=== PATIENT | female | born 1970 | race Caucasian/White ===

== ENCOUNTER 2020-07-21 00:50 | Outpatient (CLI) | payer OTHER, SELFPAY ==
[2020-07-21 18:01] LABS: SARS-CoV-2 RNA PCR Negative
== END 2020-07-21 00:51 | disposition home or self-care (01) ==
LOC: ANHCOVIDDT 00:50
PROVIDERS: PCP Physician Assistant; Visit Provider Obstetrics & Gynecology
DX: Z01.812 Encounter for preprocedural laboratory examination (principal); Z20.828 Contact with and (suspected) exposure to other viral communicable diseases
CPT/HCPCS: 87635; C9803; U0003

== ENCOUNTER 2020-07-21 08:05 | Outpatient (CLI) | payer OTHER, SELFPAY ==
--- NOTE | 2020-07-21 08:10 | ECG_ITS ---
Measurements Intervals [place] Rate: 78 P: 55 NV: 119 QRS: 24 QRSD: 85 T: 8 QT: 354 QTc: 404 Interpretive Statements SINUS RHYTHM WITH SHORT NV INTERVAL NONSPECIFIC T-WAVE ABNORMALITY- ANT/INF LEADS BASELINE ARTIFACT- I, III, AVR, AVL, AVF BORDERLINE ECG Electronically Signed On 07-21-2020 8:21:21 CDT by Saud Lockett D.O.
== END 2020-07-21 08:06 | disposition home or self-care (01) ==
LOC: ANHSURGERY 08:10
PROVIDERS: PCP Physician Assistant; Visit Provider Obstetrics & Gynecology
DX: Z01.812 Encounter for preprocedural laboratory examination (principal); I10 Essential (primary) hypertension; R94.31 Abnormal electrocardiogram [ECG] [EKG]
CPT/HCPCS: 93005

== ENCOUNTER 2020-07-23 00:55 | Day surgery (SDC) | payer OTHER, SELFPAY ==
[2020-07-08 09:42] VITALS: BMI 29.8
--- NOTE | 2020-07-23 07:19 | PM.IMHP ---
H&P: HPI History of Present Illness Date/Time: 07/23/20 07:19 Chief complaint: menometrohaghia Narrative: Joan Kauffman is a 50 year old female Presents with complaints of 5-7 day menstrual cycles with 3-5 day heavy with clotting and cramping. We discussed multiple options and she desires to proceed with endometrial ablation. Underwent hysteroscopy within the last 2 years which revealed benign tissue. Also prior salpingectomy. Review of Systems Review of Systems: All systems reviewed & are unremarkable except as noted in HPI and below PMFSH Social History Social History Years smoked: 8 Smoking status: Former smoker Tobacco type: cigarettes Second hand tobacco smoke exposure: No Alcohol intake: current Drinks per week: 2 Substance use: never Last use: 04-23-2000 Living arrangements: with family Spiritual care concerns: No Meds Home Medications and Allergies Home Medications Medication Instructions Recorded Confirmed Type atorvastatin 20 mg PO DAILY 07/08/20 07/08/20 History esomeprazole magnesium [Nexium 20 mg PO DAILY 07/08/20 07/08/20 History 24HR] losartan 50 mg PO DAILY 07/08/20 07/08/20 History venlafaxine 32.5 mg PO DAILY 07/08/20 07/08/20 History Allergies Allergy/AdvReac Type Severity Reaction Status Date / Time No Known Allergies Allergy Verified 07/08/20 09:25 Exam Const: General: no acute distress Resp: Auscultation: clear to auscultation bilaterally Cardio: Rate: regular rate Rhythm: regular rhythm GI: GI Palp: Yes Soft to palpation : Other: Uterus 8-10 week size enlarged and globular. Assessment and Plan Assessment and plan (1) Menometrorrhagia: Code(s): N92.1 - Excessive and frequent menstruation with irregular cycle Status: Acute Additional Plan proceed with hysteroscopy uterine curettings as well as endometrial ablation.
--- NOTE | 2020-07-23 07:21 | WPDHPUPDATE1 ---
History and Physical Update Update Date/Time: 07/23/20 07:21 History and Physical has been reviewed, including an updated exam of the patient. There are NO changes in the patient's condition. Risks, benefits, and alternatives have been discussed and questions answered. Patient agrees to proceed with procedure.
[2020-07-23] MEDS: ACETAMINOPHEN 500 MG TABLET 1000 MG PO (11:14)
[2020-07-23 11:19] VITALS: BP 136/102; PULSE 105; RESP 20; TEMP 37.3; O2SAT 100
[2020-07-23] MEDS: LACTATED RINGERS 1,000 ML 30 ML IV CONT (11:21)
--- NOTE | 2020-07-23 12:17 | P.PNAN_ITS ---
Anes - Initial Pre Proc Eval Procedure: Operation Date: 07/23/20 13:00 Proposed Procedures p Hysteroscopy, Dilation and Curettage with Endometrial Ablation - Jacques Nunez MD Date/Time: 07/23/20 12:17 Surgeon: Jacques Nunez MD Pre Op Diagnosis: menometrohaghia Patient Data Age: 50 Gender: F Height: 5 ft 6 in Weight: 85 kg Last Vital Signs Temp 37.3 C 07/23/20 11:19 Pulse 105 H 07/23/20 11:19 Resp 20 07/23/20 11:19 BP 136/102 H 07/23/20 11:19 Pulse Ox 100 07/23/20 11:19 Allergies Allergy/AdvReac Type Severity Reaction Status Date / Time No Known Allergies Allergy Verified 07/23/20 11:31 Home Medications Medication Instructions Recorded Confirmed Type atorvastatin 20 mg PO DAILY 07/08/20 07/23/20 History esomeprazole magnesium [Nexium 20 mg PO DAILY 07/08/20 07/23/20 History 24HR] losartan 50 mg PO DAILY 07/08/20 07/23/20 History venlafaxine 32.5 mg PO DAILY 07/08/20 07/23/20 History Patient hx anesthesia problems: none Family hx anesthesia problems: none PMFSH Social History Social History Years smoked: 8 Smoking status: Former smoker Tobacco type: cigarettes Second hand tobacco smoke exposure: No Alcohol intake: current Drinks per week: 2 Substance use: never Last use: 04-23-2000 Living arrangements: with family Spiritual care concerns: No Anes - Eval Final PreProcedure Day of Procedure 07/23/20 12:17 Patient weight: obese Heart: regular rate and rhythm Lungs: clear to auscultation Airway: Mallampati scale class II Neurological: alert and oriented Last oral intake: >/= 8 hours ASA classification: III Anesthetic plan: proceed Anesthesia type and monitoring: general GIVS and standard monitoring Informed Consent: The patient's anesthetic plan and its attendant risks and b enefits were discussed with the patient/family/POA. Questions were solicited and answers provided to the satisfaction of the patient/family/POA.
--- NOTE | 2020-07-23 13:42 | SUR.OPER ---
Ebl=5ml
--- NOTE | 2020-07-23 13:44 | PM.OP ---
Procedure Note - Brief Procedure Note - Brief Date of procedure: 07/23/20 Pre-op diagnosis: menometrohaghia Post-op diagnosis: same Procedure performed: 1. Hysteroscopy 2. Dilation curettage 3. NovaSure endometrial ablation. Description of procedure: Patient prepped and draped in usual manner for this procedure. Cervix was dilated to allow the hysteroscope to be placed which revealed thickened tissue but no specific abnormalities. Curettings were obtained and sent for pathologic diagnosis. NovaSure instrument was placed after measurements were obtained and the instrument was activated. At the end of the procedure hysteroscopic exam revealed good destruction throughout and at this point procedure was considered terminated. Anesthesia: GLMA Surgeon: Jacques Nunez MD Estimated blood loss (mL): 5 Drains: No Packing: No Pathology: yes Complications: No immediate complications Disposition: PACU Findings: 1. Thickened endometrial cavity the no specific polyps and/or fibroids or other endometrial pathology was noted.
[2020-07-23 13:50] VITALS: BP 139/91; PULSE 112; RESP 16; O2SAT 94
== END 2020-07-23 14:54 | disposition home or self-care (01) ==
PROVIDERS: PCP Physician Assistant; Visit Provider Obstetrics & Gynecology
PROC: 0U5B8ZZ Destruction of Endometrium, Via Natural or Artificial Opening Endoscopic (ICD-10-PCS; CPT 58563; principal; 2020-07-23 13:00)
DX: N92.1 Excessive and frequent menstruation with irregular cycle (principal); Z90.79 Acquired absence of other genital organ(s); Z87.891 Personal history of nicotine dependence; E66.9 Obesity, unspecified; Z68.30 Body mass index [BMI] 30.0-30.9, adult
CPT/HCPCS: 58563; 88305; A9270; J1100; J2250; J2405; J2704; J3010; J7030; J7120

== ENCOUNTER 2022-02-18 15:33 | Outpatient (CLI) | payer OTHER, SELFPAY ==
--- NOTE | ~2022-02-18 | US_ITS ---
EXAMINATION: US pelvic complete w TV DATE: 02/18/2022 16:26 INDICATION: Pelvic and perineal pain TECHNIQUE: Multiple transabdominal and endovaginal sonographic images of the pelvis were obtained. COMPARISON: None. FINDINGS: The uterus measures 10.2 x 6.1 x 5.3 cm. The endometrial complex measures 6 mm. Isoechoic m ass of the uterine body measuring up to 1.6 cm the appearance of intramural fibroids. There are multi ple nabothian cysts of the cervix. A section scar is noted anteriorly in the lower uterine b luke. The left ovary is not visualized however no left adnexal abnormality is seen. The right ovary me asures 4.3 x 3.9 x 3.5 cm and contains a 3.7 cm cyst. There is normal vascular flow in the right ovar y. There is no free fluid in the pelvis. IMPRESSION: 1. No sonographic correlate for the patient's symptoms. 2. Right ovarian cyst. Follow-up ultrasound in one year is recommended. Reviewed, dictated and finalized at location F.
== END 2022-02-18 15:34 | disposition home or self-care (01) ==
PROVIDERS: PCP Physician Assistant; Visit Provider Obstetrics & Gynecology
DX: R10.2 Pelvic and perineal pain (principal); N60.01 Solitary cyst of right breast; N88.8 Other specified noninflammatory disorders of cervix uteri
CPT/HCPCS: 76830; 76856

== ENCOUNTER 2022-07-26 10:52 | Outpatient (CLI) | payer OTHER, SELFPAY ==
[2022-07-30 07:08] LABS: FSH 7.3 mIU/mL (***)
[2022-08-01 03:57] LABS: Estradiol, Ultrasensitive 315 pg/mL
== END 2022-07-26 10:53 | disposition home or self-care (01) ==
PROVIDERS: PCP Physician Assistant; Visit Provider Obstetrics & Gynecology
DX: N95.1 Menopausal and female climacteric states (principal)
CPT/HCPCS: 36415; 82670; 83001

== ENCOUNTER 2024-04-23 01:04 | Day surgery (SDC) | payer OTHER, SELFPAY ==
[2024-04-10 10:19] VITALS: BMI 29.9
[2024-04-23 08:30] VITALS: BP 164/108; PULSE 107; RESP 17; TEMP 36.3; O2SAT 95
[2024-04-23] MEDS: LACTATED RINGERS 1,000 ML 150 ML IV CONT (08:43)
--- NOTE | 2024-04-23 09:23 | PM.HPGS ---
History of Present Illness History of Present Illness Consent: Risks, benefits, and alternatives have been discussed and questions answered. Patient agrees to proceed with procedure. Chief complaint: Family Hx. Colon CA Narrative: Joan Kauffman is a 53 year old female with last colonoscopy 5 years ago, father had colon cancer Review of Systems Review of Systems: All systems reviewed & are unremarkable except as noted in HPI and below PMFSH Past Medical History Medical History (Updated 04/23/24 @ 09:24 by Demetris Patrick MD) Abnormal Pap smear of cervix 2000 ascus Anemia Anxiety and depression Arthritis Asthma Breast asymmetry Dizziness Family history of colon cancer in father High cholesterol Hypertension Mild acid reflux Perimenopause Screening mammogram, encounter for Surgical History Surgical History Delivery by section 12/25/03 primary c/s--breech @ 34 weeks H/O tubal ligation (08/10/18) History of colposcopy with cervical biopsy (~2000) benign History of dilation and curettage (08/10/18) History of endometrial ablation (07/23/20) menometrorrhagia Family History Family History Father Carcinoma of colon Mother Diabetes mellitus Arthritis Sibling Diabetes mellitus sister Grandparent Breast cancer paternal grandmother Tumor of ovary paternal grandmother Social History Social History (Updated 07/26/22 @ 10:09 by NARA Bower) Years smoked: 8 Smoking status: Former smoker Tobacco type: cigarettes Second hand tobacco smoke exposure: No Alcohol intake: current Drinks per week: 1 Alcohol use details: per month Substance use: never Substance use type: does not use Last use: 04-23-2000 Living arrangements: with family Additional living arrangements comments: Occupation/Education: occupation 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 Gender identity (if verbalized by the patient): Female Sexual Orientation (if Verbalized by the Patient): Straight or Heterosexual Spiritual care concerns: No Meds Home Medications and Allergies Home Medications Medication Instructions Recorded Confirmed Type esomeprazole magnesium 20 mg 20 mg PO DAILY 07/08/20 04/10/24 History capsule,delayed release (Nexium 24HR) losartan 50 mg tablet 50 mg PO DAILY 07/08/20 04/10/24 History venlafaxine 75 mg tablet 32.5 mg PO DAILY 07/08/20 04/10/24 History fluconazole 150 mg tablet 150 mg PO ONCE #5 tabs 07/26/22 04/10/24 Rx (Diflucan) atorvastatin 40 mg tablet 40 mg PO DAILY 04/10/24 04/10/24 History Allergies Allergy/AdvReac Type Severity Reaction Status Date / Time No Known Allergies Allergy Verified 04/23/24 08:29 Vital Signs Vital Signs - 24 hr 04/23/24 08:30 Temperature 97.4 F L Pulse Rate 107 H Respiratory Rate 17 Blood Pressure 164/108 H Pulse Oximetry 95 Oxygen Delivery Room Air Exam Const: General: comfortable and no acute distress HENMT: Face/Nose/Sinus: Normal nares present Eyes: General: appearance normal, both eyes and all related structures Neck: Neck: no JVD Resp: Auscultation: clear to auscultation bilaterally Cardio: Rate: regular rate Rhythm: regular rhythm GI: Inspection: non-distended GI Palp: Yes Soft to palpation Skin: General skin exam: normal color Neuro: General: gait normal Speech: normal speech Extrem: General: normal to inspection Psych: Mental Status: mental status grossly normal Assessment and Plan Assessment and plan (1) Family history of colon cancer in father: Code(s): Z80.0 - Family history of malignant neoplasm of digestive organs Status: Acute Assessment and Plan: colonoscopy
--- NOTE | 2024-04-23 09:37 | WPDANESEPPF ---
Anes - Initial Pre Proc Eval Procedure: Operation Date: 04/23/24 10:00 Proposed Procedures p Colonoscopy - Demetris Patrick MD Date/Time: 04/23/24 09:37 Surgeon: Demetris Patrick MD Pre Op Diagnosis: Family Hx. Colon CA Patient Data Age: 53 Gender: F Height: 1.68 m Weight: 82.5 kg Last Vital Signs Temp 97.4 F L 04/23/24 08:30 Pulse 107 H 04/23/24 08:30 Resp 17 04/23/24 08:30 BP 164/108 H 04/23/24 08:30 Pulse Ox 95 04/23/24 08:30 O2 Del Method Room Air 04/23/24 08:30 Allergies Allergy/AdvReac Type Severity Reaction Status Date / Time No Known Allergies Allergy Verified 04/23/24 08:29 Home Medications Medication Instructions Recorded Confirmed Type esomeprazole magnesium 20 mg 20 mg PO DAILY 07/08/20 04/10/24 History capsule,delayed release (Nexium 24HR) losartan 50 mg tablet 50 mg PO DAILY 07/08/20 04/10/24 History venlafaxine 75 mg tablet 32.5 mg PO DAILY 07/08/20 04/10/24 History fluconazole 150 mg tablet 150 mg PO ONCE #5 tabs 07/26/22 04/10/24 Rx (Diflucan) atorvastatin 40 mg tablet 40 mg PO DAILY 04/10/24 04/10/24 History Patient hx anesthesia problems: none Family hx anesthesia problems: none Results Review: All pre-operative results and documents have been reviewed as part of the pre-operative evaluation. [facility] Past Medical History Medical History (Updated 04/23/24 @ 09:24 by Demetris Patrick MD) Abnormal Pap smear of cervix 2000 ascus Anemia Anxiety and depression Arthritis Asthma Breast asymmetry Dizziness Family history of colon cancer in father High cholesterol Hypertension Mild acid reflux Perimenopause Screening mammogram, encounter for Surgical History Surgical History Delivery by section 12/25/03 primary c/s--breech @ 34 weeks H/O tubal ligation (08/10/18) History of colposcopy with cervical biopsy (~2000) benign History of dilation and curettage (08/10/18) History of endometrial ablation (07/23/20) menometrorrhagia Family History Family History Father Carcinoma of colon Mother Diabetes mellitus Arthritis Sibling Diabetes mellitus sister Grandparent Breast cancer paternal grandmother Tumor of ovary paternal grandmother Social History Social History (Updated 07/26/22 @ 10:09 by NARA Bower) Years smoked: 8 Smoking status: Former smoker Tobacco type: cigarettes Second hand tobacco smoke exposure: No Alcohol intake: current Drinks per week: 1 Alcohol use details: per month Substance use: never Substance use type: does not use Last use: 04-23-2000 Living arrangements: with family Additional living arrangements comments: Occupation/Education: occupation 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 Gender identity (if verbalized by the patient): Female Sexual Orientation (if Verbalized by the Patient): Straight or Heterosexual Spiritual care concerns: No Anes - Eval Final PreProcedure Day of Procedure 04/23/24 09:37 Patient weight: normal Heart: regular rate and rhythm Lungs: clear to auscultation Airway: Mallampati scale class II Neurological: alert and oriented Last oral intake: >/= 8 hours ASA classification: II Emergent: no Anesthetic plan: proceed Anesthesia type and monitoring: general GIVS and standard monitoring Results Review: All pre-operative results and documents have been reviewed as part of the pre-operative evaluation. Informed Consent: The patient's anesthetic plan and its attendant risks and benefits were discussed with the patient/family/POA. Questions were solicited and answers provided to the satisfaction of the patient/family/POA.
[2024-04-23 09:41] VITALS: BP 126/85; PULSE 102; RESP 20; O2SAT 99
[2024-04-23 09:51] VITALS: BP 137/88; PULSE 97; RESP 25; O2SAT 99
[2024-04-23 10:01] VITALS: BP 130/80; PULSE 74; RESP 13; O2SAT 100
== END 2024-04-23 10:04 | disposition home or self-care (01) ==
PROVIDERS: PCP Physician Assistant; Visit Provider Internal Medicine Gastroenterology
PROC: 0DJD8ZZ Inspection of Lower Intestinal Tract, Via Natural or Artificial Opening Endoscopic (ICD-10-PCS; CPT 45378; principal; 2024-04-23 10:00)
DX: Z12.11 Encounter for screening for malignant neoplasm of colon (principal); K64.8 Other hemorrhoids; Z80.0 Family history of malignant neoplasm of digestive organs; I10 Essential (primary) hypertension; E78.00 Pure hypercholesterolemia, unspecified; J45.909 Unspecified asthma, uncomplicated; F41.8 Other specified anxiety disorders; K21.9 Gastro-esophageal reflux disease without esophagitis; D64.9 Anemia, unspecified; Z87.891 Personal history of nicotine dependence
CPT/HCPCS: 45378; J2704; J7120

== ENCOUNTER 2024-12-03 09:36 | Outpatient (CLI) | payer OTHER, SELFPAY ==
--- NOTE | ~2024-12-03 | CT_ITS ---
EXAMINATION: CT abdomen pelvis w con DATE: 12/03/2024 10:22 INDICATION: Left lower quadrant abdominal pain TECHNIQUE: Computed tomography (CT) of the abdomen and pelvis was performed with 100 mL Omnipaque-350 intravenous contrast. Automated exposure control and iterative reconstruction technique were employe d. The dose-length product was 682.36 mGy-cm. COMPARISON: None FINDINGS: Calcified right lower lobe nodule and multiple small splenic calcifications consistent with old granu lomatous disease. Heart size normal. No pericardial or pleural effusion. Diffuse hepatic steatosis wi th more focal fat along the shamar hepatis. Gallbladder, pancreas, bilateral adrenal glands and kidney s are normal. No bowel obstruction. Normal appendix. There are some fluid in the proximal colon consi stent with nonspecific diarrhea but with stool more distally. Bladder, anteverted uterus and bilatera l adnexa are unremarkable. No free intraperitoneal gas or fluid. No pathologically enlarged abdominal or pelvic lymphadenopathy. Bones are unremarkable. IMPRESSION: 1. Fluid in the proximal colon consistent with nonspecific diarrhea. No other acute intra-abdominal/p elvic process. 2. Diffuse hepatic steatosis. Reviewed, dictated and finalized at location A. [employer] IMPRESSION: 1. Fluid in the proximal colon consistent with nonspecific diarrhea. No other a cute intra-abdominal/pelvic process. 2. Diffuse hepatic steatosis.
[2024-12-03 10:11] LABS: Estimated Glomerular Filt Rate > 60
== END 2024-12-03 09:37 | disposition home or self-care (01) ==
LOC: MICIMG 09:38
PROVIDERS: PCP Physician Assistant; Visit Provider Physician Assistant
DX: K63.89 Other specified diseases of intestine (principal); K76.0 Fatty (change of) liver, not elsewhere classified; R10.32 Left lower quadrant pain
CPT/HCPCS: 74177; Q9967

== ENCOUNTER 2025-01-14 01:00 | Day surgery (SDC) | payer OTHER, SELFPAY ==
[2025-01-03 12:22] VITALS: BMI 27.3
--- OUTSIDE RECORDS SUMMARY | 2025-01-14 01:03 | XMS_ITS | Continuity of Care Document ---
Author Organization [employer] [place] Address [address] [place] [address] Phone Care Team Providers Care Housekeeping Lead Name Role Phone Miquelmayuri FAITH Katharina Unavailable Unavailable Procedures Procedure Date Therapeutic Activities Neuromuscular Re-Ed Therapeutic Exercise Manual Therapy Hot or Cold Pack Therapeutic Activities Neuromuscular Re-Ed Therapeutic Exercise Manual Therapy Hot or Cold Pack Therapeutic Activities Neuromuscular Re-Ed Therapeutic Exercise Manual Therapy Hot or Cold Pack Therapeutic Activities Neuromuscular Re-Ed Therapeutic Exercise Manual Therapy Hot or Cold Pack Therapeutic Activities Neuromuscular Re-Ed Therapeutic Exercise Manual Therapy Hot or Cold Pack Therapeutic Activities Neuromuscular Re-Ed Therapeutic Exercise Manual Therapy Hot or Cold Pack Therapeutic Activities Neuromuscular Re-Ed Therapeutic Exercise Manual Therapy Hot or Cold Pack Therapeutic Activities Therapeutic Exercise Neuromuscular Re-Ed Hot or Cold Pack Manual Therapy Therapeutic Activities Neuromuscular Re-Ed Therapeutic Exercise Manual Therapy Hot or Cold Pack Therapeutic Activities Neuromuscular Re-Ed Therapeutic Exercise Manual Therapy Hot or Cold Pack Therapeutic Activities Neuromuscular Re-Ed Therapeutic Exercise Manual Therapy Hot or Cold Pack Therapeutic Activities Neuromuscular Re-Ed Manual Therapy Therapeutic Exercise Hot or Cold Pack Therapeutic Activities Neuromuscular Re-Ed Therapeutic Exercise Manual Therapy Hot or Cold Pack OT Evaluation Low Complexity Therapeutic Activities Neuromuscular Re-Ed Therapeutic Exercise Hot or Cold Pack Advance Directives Directive Yes / No Effective Date File Name No Information Encounters Encounter Description Practice Location Reason(s) For Visit Diagnoses Date Provider Providers Copied on Encounter [email or web address] [address], [place], [place], [id number], tel:[phone] [place] No Information b-0 3 Shana Posadas. . Referring Provider: Nancy Miller [address], [place], [address]. tel:[phone] [email or web address], [place], [place], [id number], tel:[phone] [place] No Information b-0 3 Ashley Fowler. . Referring Provider: Nancy Miller [address], [place], [address]. tel:[phone] [facility], [address], [place], [place], [id number], [place] tel:[phone] [place] No Information 3 Shana Posadas. . Referring Provider: aNncy Miller , [address], [place], [address]. tel:[phone] [facility], [address], [place], [place], [id number], [place] tel:[phone] [place] No Information 3 Shana Posadas. . Referring Provider: Nancy Miller , [address], [place], [address]. tel:[phone] [facility], [address], [place], [place], [id number], [place] tel:[phone] [place] No Information 3 Shana Posadas. . Referring Provider: Nancy Miller , [address], [place], [address]. tel:[phone] [facility], [place], [place], [address], [place] tel:[phone] [place] No Information 3 Shana Posadas. . Referring Provider: Nancy Miller [address], [place], [address]. tel:[phone] [facility], [place], [place], [address], [place] tel:[phone] [place] No Information 3 Shana Posadas. . Referring Provider: Nancy Miller [address], [place], [address]. tel:[phone] [facility], [place], [place], [id number], [place] tel:[phone] [place] No Information 3 Harig Katharina. . Referring Provider: Nancy Miller [address], [place], [address]. tel:[phone] [facility], [address], [place], [place], [id number], [place] tel:[phone] [place] No Information 2 Harig Katharina. . Referring Provider: Nancy Miller [address], [place], [address]. tel:[phone] [facility] [address], [place], [place], [id number], [place] tel:[phone] [place] No Information 2 Harig Katharina. . Referring Provider: Nancy Miller [address], [place], [address]. tel:[phone] [facility], [address], [place], [place], [address], [place] tel:[phone] Bl[place] No Information 2 Hasanoabebe Stapletonisa. . Referring Provider: Nancy Miller [address], [place], [address]. tel:[phone] [facility], [place], [place], [id number], [place] tel:[phone] Bl[place] No Information 2 James Voss. . Referring Provider: Nancy Miller [address], [place], [address]. tel:[phone] [facility], [address], [place], [place], [id number], [place] tel:[phone] Bl[place] No Information 2 Harig Katharina. . Referring Provider: Nancy Miller [address], [place], [address]. tel:[phone] [employer] [place], [address], [place], [place], [id number], tel:[phone] [place] No Information 2 Shana Posadas. . Referring Provider: Nancy Miller , [address], [place], [address]. tel:[phone] Family History Family Member Type Diagnosis Age At Onset No Information Payers Payer name Insurance type Covered democrat ID Benja garcia(s) Impinj CI [id number] Social History Type Description Quantity Date Captured Comments Sex Female Smoking Status No Information Chief Complaint And Reason For Visit No Information Reason For Referral Reason For Referral No Information History Of Present Illness Encounter Date Complaint History Of Prese nt Illness No Information Functional Status Date Functional Assessmen t No Information Instructions Date Instruction Additional Infor slick Dietary needs education Related to Overweight Prescribed activity/exercise edu cation Related to Overweight Assessments Type Assessment Date No Information Patient Care Teams Name Effective Dates (start - stop) Status Members No Information
--- OUTSIDE RECORDS SUMMARY | 2025-01-14 01:03 | XMS_ITS | Continuity of Care Document ---
Author Organization [facility] Address [address] [place] [address] Phone Care Team Providers Care Client Partner Name Role Phone Raciel Richardson MD Unavailable Unavailable Procedures Procedure Date Est. Patient Level 2 Ankle, Min Of 3 Views Est. Patient Level 2 Ankle, Min Of 3 Views New Patient Ov Level 2 Air Cast Advance Directives Directive Yes / No Effective Date File Name No Information Encounters Encounter Description Practice Location Reason(s) For Visit Diagnoses Date Provider Providers Copied on Encounter Est. Patient Level 2 [facility], [address] [place] [address], [id number], tel:[phone] [facility] No Information 3 Dylan Schrader. [address] [place] [address], [address], [place], [place], [id number] , [place]. [phone] Referring Provider: Raciel Muhammad, [address] [place] [address] [address], [place], [address] . tel:[phone] Est. Patient Level 2 [facility], [address] [place] [address], [place], [place], [id number], [place] tel:[phone] [facility] No Information 3 Dylan Schrader. [address] [place] [address], [address], [place], [place], [id number] , [place]. [phone] Referring Provider: Raciel Muhammad, [address], [place], [address] . tel:[phone] New Patient Ov Level 2 [facility] [place], [address], [place], [id number], [place] tel:[phone] [facility] No Information 3 Dylan Schrader. [address] [place] [address], [address], [place], [id number] , [place]. tel: [phone] Referring Provider: Loy Kauffman MD, [address], [place], [address]. tel:[phone] Family History Family Member Type Diagnosis Age At Onset No Information Payers Payer name Insurance type Covered republican ID Authoriza titerrance(s) [employer] PPO BL [id number] Social History Type Description Quantity Date Captured Comments Sex Female Smoking Status No Information Chief Complaint And Reason For Visit No Information Reason For Referral Reason For Referral No Information Plan Of Treatment Date Type Action Status Future Order: Lab Order [id number] LT-AP/LAT/OBL ([id number]), Appointment on: , Sent on: Sent Future Order: Lab Order [id number] LT-AP/LAT/OBL ([id number]), Appointment on: , Sent on: Sent History Of Present Illness Encounter Date Complaint History Of Prese nt Illness No Information Functional Status Date Functional Assessmen t No Information Instructions Date Instruction Additional Infor mation No Information Assessments Type Assessment Date No Information Patient Care Teams Name Effective Dates (start - stop) Status Members No Information
--- OUTSIDE RECORDS SUMMARY | 2025-01-14 01:03 | XMS_ITS | Data Portability ---
Author Organization [facility] [place], Main Office Address [address] [place] [address] Assessment No assessment recorded. Plan of Treatment Reminders Order Date Submit Date Provider Last Modified By Organization Details Last Modified Time Details Appointments None recorded. Lab HbA1c (hemoglobin A1c), blood 2022 023 [email or web address] [facility], [address], [place], [address], 4 10:10:48 TSH + free T4, serum 2022 023 [email or web address] [facility], [address], [place], [address], 4 10:11:06 CBC w/ auto diff 2022 023 [email or web address] 4 [facility], [address], [place], [address], 4 10:11:11 lipid panel, serum 2022 023 [email or web address] 4 [facility], [address], [place], [address], 4 10:10:53 CMP, serum or plasma 2022 023 [email or web address] 4 [employer] [facility], [address], [place], [address], 4 10:11:00 lh + FSH, serum 2022 023 [employer] [facility], [address], [place], [address], 3 03:15:17 estradiol, serum 2022 023 [employer] [facility], [address], [place], [address], 3 03:15:26 progesteron e, serum 2022 023 [employer] [facility], [address], [place], [address], 3 03:15:25 testosteron e, total, serum 2022 023 [employer] [facility], [address], [place], [address], 3 03:15:27 TSH, serum or plasma 2022 023 [employer] [facility], [address], [place], [address], 3 03:15:20 T4, free, serum 2022 023 [employer] [facility], [address], [place], [address], 3 03:15:21 CMP, serum or plasma 2022 023 [employer] [facility], [address], [place], [address], 3 03:15:19 CBC w/ auto diff 2022 023 [employer] [facility], [address], [place], [address], 3 03:15:22 urinalysis complete, reflex culture 2022 023 [employer] [facility], [address], [place], [address], 3 03:15:23 vitamin B12 + folate, serum or blood 2022 023 [facility], [address], [place], [address], 3 03:15:24 lipid panel, serum 2022 023 MAURI [employer] [facility], [address], [place], [address], 3 03:15:18 HbA1c (hemoglobin A1c), blood 2022 023 [facility], [address], [place], [address], 3 03:15:20 microalbumi n/creatinin e, mass ratio, urine 2022 023 OCALA [employer] [facility], [address], [place], [address], 3 03:15:16 Referral None recorded. Procedures upper endoscopy procedure (EGD) (PROC) 2022 023 james Estrada MD, [address], [address], [place], [address], 4 10:10:39 upper endoscopy procedure (EGD) (PROC) 2022 023 james Estrada MD, [address], [address], [place], [address], 3 10:25:16 Surgeries None recorded. Imaging CT, abdomen, w/ contrast - No auth needed per Janet Ref# [id number] 2022 023 MAURI Not available 3 14:09:51 exercise stress echocardiog margaret 2022 023 MAURI [facility], [address], [address], [place], [address], 3 13:46:42 Medication Orders pantoprazol e 40 mg tablet,indu yed release 2022 023 [id number], [address], [place], [place], [id number], 3 09:43:50 Mounjaro 2.5 mg/0.5 mL subcutaneou s pen injector 2022 023 [id number], [address], [place], [place], [id number], 3 09:43:49 Patient TargetsNo targets recorded. Patient InstructionsNo instructions recorded. Reason for Referral None Reported. Results Created Date Observation Date Name Description Value Unit Range Abnormal Flag Note LastModifiedBy Organization Detail LastModifiedTime 06/12/20 21 06/16/2021 IGP, APTIM A HPV HPV aptima negati ve negati ve This nucle ic acid ampli ficat ion test detec ts fourt een high- risk HPV types (16,1 8,31, 33,35 ,39,4 5,51, 52,56 ,58,5 9,66, 68) witho ut diffe renti ation . Not Available [facility] [address] [place], [address], 06/18/2021 10:11:54 06/12/20 21 06/18/2021 IGP, APTIM A HPV electronical ly signed by: gwen Britton MD, Patho logis t Not Available [facility] [address], [place], [address], 06/18/2021 10:11:54 06/12/20 21 06/18/2021 IGP, APTIM A HPV diagnosis: commen t NEGAT LUPE FOR INTRA EPITH ELIAL LESIO N OR MALIG SHAILESH . REACT LUPE CELLU LAR FORRESTER ES AND/O R REPAI R ARE PRESE NT. Not Available [facility] [address] [place], [address], 06/18/2021 10:11:54 06/12/20 21 06/18/2021 IGP, APTIM A HPV specimen adequacy: commen t Satis facto ry for evalu ation . Endoc ervic al and/o r squam ous metap lasti c cells (endo cervi aakash compo nent) are prese nt. Not Available [facility] [address] [place], [address], 06/18/2021 10:11:54 06/12/20 21 06/18/2021 IGP, APTIM A HPV clinician provided ICD10: gwen weeks Z01.4 19 Not Available [facility] [address] [place], [address], 06/18/2021 10:11:54 06/12/20 21 06/18/2021 IGP, APTIM A HPV performed by: gwen t Rai Mccall (ASCP ) Not Available [facility] [place], [address], 06/18/2021 10:11:54 06/12/20 21 06/18/2021 IGP, APTIM A HPV . . Not Available [facility] [address] [place], [address], 06/18/2021 10:11:54 06/12/20 21 06/18/2021 IGP, APTIM A HPV note: commen t The Pap smear is a scree katrin test desig luke to aid in the detec tion of taina ligna nt and malig nant condi tions of the uteri ne cervi x. It is not a diagn ostic proce dure and shoul d not be used as the sole means of detec ting cervi aakash cance r. Both false -posi tive and false -nega tive repor ts do occur . Not Available [facility] [address] [place], [address], 06/18/2021 10:11:54 06/12/20 21 06/18/2021 IGP, APTIM A HPV test methodology: commen t This liqui d based ThinP rep(R ) pap test was scree luke with the use of an image guide vaughn ramos. Not Available [facility] [address] [place], [address], 06/18/2021 10:11:54 06/12/20 21 06/15/2021 NUSWA B VAGIN ITIS (VG) atopobium vaginae low - 0 score normal Not Available [facility] ([facility]) [address] [place], [address], 06/16/2021 15:18:09 06/12/20 21 06/15/2021 NUSWA B VAGIN ITIS (VG) bvab 2 low - 0 score normal Not Available [facility] ([facility]) [address] [place], [address], 06/16/2021 15:18:09 06/12/20 21 06/15/2021 NUSWA B VAGIN ITIS (VG) megasphaera 1 low - 0 score normal Calcu late total score by addin g the 3 indiv idual bacte rial vagin osis (BV) marke r score s toget her. Total score is inter prete d as follo ws: Total score 0-1: Indic ates the absen ce of BV. Total score 2: Indet ermin ate for BV. Addit ional clini aakash data shoul d be evalu ated to estab elke a diagn osis. Total score 3-6: Indic ates the prese nce of BV. This test was devel oped and its perfo rmanc e polo cteri stics deter mined by [facility]. It has not been clear ed or appro eugene by the Food and Drug Admin istra tion. Not Available [facility] ([facility]) [address], [place], [address], 06/16/2021 15:18:09 06/12/20 21 06/15/2021 NUSWA B VAGIN ITIS (VG) chelo albicans, NIXON negati ve negati ve normal Not Available [facility] ([facility]) [address], [place], [address], 06/16/2021 15:18:09 06/12/20 21 06/15/2021 NUSWA B VAGIN ITIS (VG) chelo glabrata, NIXON negati ve negati ve normal Not Available [facility] ([facility]) [address], [place], [address], 06/16/2021 15:18:09 06/12/20 21 06/16/2021 NUSWA B VAGIN ITIS (VG) trich vag by NIXON negati ve negati ve normal Not Available [facility] ([facility]) [address], [place], [address], 06/16/2021 15:18:09 06/16/20 21 06/17/2021 HEMOG LOBIN A1C hemoglobin A1C 7.1 %_of_ total _HGB <5.7 high Not Available [facility] [address] [place], [place] [address], [address], 06/17/2021 08:07:18 06/16/20 21 06/17/2021 BASIC METAB OLIC PANEL BUN/creatini ne ratio not applic able (calc ) 6-22 Not Available [facility] [address] [facility] [place], [address], 06/17/2021 08:07:18 06/16/20 21 06/17/2021 BASIC METAB OLIC PANEL creatinine 0.69 mg/dL 0.50-1 .05 normal For patie nts >49 years of age, the refer ence limit for Creat inine is appro ximat cory 13% highe r for peopl e ident ified as Afric an-Am rajesh n. Not Available [address], [address], 06/17/2021 08:07:18 06/16/20 21 06/17/2021 BASIC METAB OLIC PANEL eGFR non-afr. brazilian 102 mL/mi n/1.7 3m2 > or = 60 normal Not Available [address], [address], 06/17/2021 08:07:18 06/16/20 21 06/17/2021 BASIC METAB OLIC PANEL eGFR 118 mL/mi n/1.7 3m2 > or = 60 normal Not Available [address], [address], 06/17/2021 08:07:18 06/16/20 21 06/17/2021 BASIC METAB OLIC PANEL sodium 137 mmol/ L 135-14 6 normal Not Available [address], [address], 06/17/2021 08:07:18 06/16/20 21 06/17/2021 BASIC METAB OLIC PANEL potassium 4.7 mmol/ L 3.5-5. 3 normal Not Available [address], [address], 06/17/2021 08:07:18 06/16/20 21 06/17/2021 BASIC METAB OLIC PANEL chloride 103 mmol/ L 98-110 normal Not Available [address], [address], 06/17/2021 08:07:18 06/16/20 21 06/17/2021 BASIC METAB OLIC PANEL carbon dioxide 26 mmol/ L 20-32 normal Not Available [address], [address], 06/17/2021 08:07:18 06/16/20 21 06/17/2021 BASIC METAB OLIC PANEL calcium 9.3 mg/dL 8.6-10 .4 normal Not Available [address], [address], 06/17/2021 08:07:18 06/16/20 21 06/17/2021 BASIC METAB OLIC PANEL glucose 144 mg/dL 65-99 high Fasti ng refer ence inter priyanka For someo ne witho ut known diabe srinath, a gluco se value >125 mg/dL indic ates that they may have diabe srinath and this shoul d be confi rmed with a follo w-up test. Not Available [address], [address], 06/17/2021 08:07:18 06/16/20 21 06/17/2021 BASIC METAB OLIC PANEL urea nitrogen (BUN) 12 mg/dL 7-25 normal Not Available [address], [address], 06/17/2021 08:07:18 06/16/20 21 06/17/2021 LIPID PANEL , STAND YODIT chol/HDLC ratio 3.5 (calc ) <5.0 normal Not Available [address], [address], 06/17/2021 08:07:17 06/16/20 21 06/17/2021 LIPID PANEL , STAND YODIT cholesterol, total 205 mg/dL <200 high Not Available [address], [address], 06/17/2021 08:07:17 06/16/20 21 06/17/2021 LIPID PANEL , STAND YODIT HDL cholesterol 59 mg/dL > or = 50 normal Not Available [address], [address], 06/17/2021 08:07:17 06/16/20 21 06/17/2021 LIPID PANEL , STAND YODIT triglyceride s 107 mg/dL <[address] [facility] [address] [place], [address], 06/17/2021 08:07:17 06/16/20 21 06/17/2021 LIPID PANEL , STAND YODIT LDL-choleste rol 125 mg/dL _(aakash c) high Refer ence range : <100 Delmis able range <100 mg/dL for prima ry preve ntion ; <70 mg/dL for patie nts with CHD or diabe tic patie nts with > or = 2 CHD risk facto rs. LDL-C is now calcu lated using the Renetta n-Hop kins calcu latio n, which is a valid ated novel dimaso vaughn bei john brigid r accur acy than the Fried helena equat ion in the estim ation of LDL-C . Renetta william SS et al. LARISSA. 2013; 310(1 9): 2061- 2068 (http ://ed ucati on.Qu Amigo da Cultura. com/f aq/FA Q164) Not Available [facility] [address] , [place], [address], 06/17/2021 08:07:17 06/16/20 21 06/17/2021 LIPID PANEL , STAND YODIT non HDL cholesterol 146 mg/dL _(aakash c) <130 high For patie nts with diabe srinath plus 1 major ASCVD risk facto r, treat ing to a non-H DL-C goal of <100 mg/dL (LDL- C of <70 mg/dL ) is consfelecia genaoo n. Not Available [facility] [address] [place], [address], 06/17/2021 08:07:17 04/06/20 23 04/10/2023 ALBUM IN, RANDO M URINE W/CRE ATINI NE creatinine, random urine 174 mg/dL 20-275 normal Not Available [facility] [address] [place], [address], 04/10/2023 03:15:16 04/06/2004/10/2023 ALBUM IN, RANDO M URINE W/CRE ATINI NE albumin, urine 0.7 mg/dL see note: normal Refer ence Range : Refer ence Range Not estab lishe d Not Available [address] [address] [place], [address], 04/10/2023 03:15:16 04/06/2004/10/2023 ALBUM IN, RANDO M URINE W/CRE ATINI NE albumin/crea tinine ratio, random urine 4 mcg/m g_cre at <30 normal The ADA defin es abnor malit ies in album in excre tion as follo ws: Album inuri a Categ ory Resul t (mcg/ mg creat inine ) Benita l to Mildl y incre ased <30 Moder ately incre ased 30-29 9 Sever cory incre ased > OR = 300 The ADA recom mends that at least two of three speci mens colle cted withi n a 3-6 month perio d be abnor mal befor e consi ryne g a patie nt to be withi n a diagn ostic categ ory. Not Available [address] [address] [place], [address], 04/10/2023 03:15:16 04/06/2004/10/2023 FSH AND LH FSH 31.5 mIU/m L normal Refer ence Range Folli cular Phase 2.5-1 0.2 Mid-c ycle Peak 3.1-1 7.7 Lutea l Phase 1.5- 9.1 Postm enopa usal 23.0- 116.3 Not Available [address] [address] [place], [address], 04/10/2023 03:15:17 04/06/2004/10/2023 FSH AND LH LH 27.2 mIU/m L normal Refer ence Range Folli cular Phase 1.9-1 2.5 Mid-C ycle Peak 8.7-7 6.3 Lutea l Phase 0.5-1 6.9 Postm enopa usal 10.0- 54.7 Not Available [address] [address] [place], [address], 04/10/2023 03:15:17 04/06/20 23 04/10/2023 LIPID PANEL WITH RATIO S cholesterol, total 199 mg/dL <200 normal Not Available [facility] [address] [address] [place], [address], 04/10/2023 03:15:18 04/06/20 23 04/10/2023 LIPID PANEL WITH RATIO S HDL cholesterol 62 mg/dL > or = 50 normal Not Available [address], [address], 04/10/2023 03:15:18 04/06/20 23 04/10/2023 LIPID PANEL WITH RATIO S triglyceride s 101 mg/dL <150 normal Not Available [address], [address], 04/10/2023 03:15:18 04/06/2004/10/2023 LIPID PANEL WITH RATIO S LDL-choleste rol 117 mg/dL _(aakash c) high Refer ence range : <100 Delmis able range <100 mg/dL for prima ry preve ntion ; <70 mg/dL for patie nts with CHD or diabe tic patie nts with > or = 2 CHD risk facto rs. LDL-C is now calcu lated using the Renetta n-Hop uday dickens n, which is a valid ated novel chato jones acy than the Fried helena equat ion in the estim ation of LDL-C . Renetta william SS et al. LARISSA. 2013; 310(1 9): 2061- 2068 (http ://ed ucati on.Qu estDi BackupAgentos tics. com/f aq/FA Q164) Not Available [facility] [address] [address] [place], [address], 04/10/2023 03:15:18 04/06/2004/10/2023 LIPID PANEL WITH RATIO S chol/HDLC ratio 3.2 (calc ) <5.0 normal Not Available [facility] [address] [address] [place], [address], 04/10/2023 03:15:18 04/06/2004/10/2023 LIPID PANEL WITH RATIO S LDL/HDL ratio 1.9 (calc ) Below avera ge Risk: <2.34 Wheeler ge Risk: 2.35- 4.12 Moder ate Risk: 4.13- 5.56 High Risk: >5.57 Not Available [facility] [address] [address] [place], [address], 04/10/2023 03:15:18 04/06/2004/10/2023 LIPID PANEL WITH RATIO S non HDL cholesterol 137 mg/dL _(aakash c) <130 high For patie nts with diabe srinath plus 1 major ASCVD risk facto r, treat ing to a non-H DL-C goal of <100 mg/dL (LDL- C of <70 mg/dL ) is consi jordid a thera peuti c optio n. Not Available [address] [address] [place], [address], 04/10/2023 03:15:18 04/06/2004/10/2023 COMPR EHENS LUPE METAB OLIC PANEL glucose 188 mg/dL 65-99 high Fasti ng refer ence inter priyanka For someo ne witho ut known diabe srinath, a gluco se value >125 mg/dL indic ates that they may have diabe srinath and this shoul d be confi rmed with a follo w-up test. Not Available [facility] [address] [address] [place], [address], 04/10/2023 03:15:19 04/06/20 23 04/10/2023 COMPR EHENS LUPE METAB OLIC PANEL urea nitrogen (BUN) 15 mg/dL 7-25 normal Not Available [address], [address], 04/10/2023 03:15:19 04/06/20 23 04/10/2023 COMPR EHENS LUPE METAB OLIC PANEL creatinine 0.74 mg/dL 0.50-1 .03 normal Not Available [address], [address], 04/10/2023 03:15:19 04/06/20 23 04/10/2023 COMPR EHENS LUPE METAB OLIC PANEL eGFR 98 mL/mi n/1.7 3m2 > or = 60 normal The eGFR is based on the CKD-E PI 2020 equat ion. To calcu late the new eGFR from a previ ous Creat inine or Cysta tin C resul t, go to https ://jennifer w.viki garcia.o seng/twyla sierra s/ kdoqi /gfr% 5Fcal culat or Not Available [address], [address], 04/10/2023 03:15:19 04/06/20 23 04/10/2023 COMPR EHENS LUPE METAB OLIC PANEL BUN/creatini ne ratio NOT APPLIC ABLE (calc ) 6-22 Not Available [address], [address], 04/10/2023 03:15:19 04/06/20 23 04/10/2023 COMPR EHENS LUPE METAB OLIC PANEL sodium 137 mmol/ L 135-14 6 normal Not Available [address], [address], 04/10/2023 03:15:19 04/06/20 23 04/10/2023 COMPR EHENS LUPE METAB OLIC PANEL potassium 4.6 mmol/ L 3.5-5. 3 normal Not Available [address] [address] [place], [address], 04/10/2023 03:15:19 04/06/2004/10/2023 COMPR EHENS LUPE METAB OLIC PANEL chloride 103 mmol/ L 98-110 normal Not Available [address] [place], [address], 04/10/2023 03:15:19 04/06/20 23 04/10/2023 COMPR EHENS LUPE METAB OLIC PANEL carbon dioxide 26 mmol/ L 20-32 normal Not Available [address], [address], 04/10/2023 03:15:19 04/06/2004/10/2023 COMPR EHENS LUPE METAB OLIC PANEL calcium 9.0 mg/dL 8.6-10 .4 normal Not Available [address], [address], 04/10/2023 03:15:19 04/06/2004/10/2023 COMPR EHENS LUPE METAB OLIC PANEL protein, total 6.8 g/dL 6.1-8. 1 normal Not Available [address], [address], 04/10/2023 03:15:19 04/06/2004/10/2023 COMPR EHENS LUPE METAB OLIC PANEL albumin 4.3 g/dL 3.6-5. 1 normal Not Available [facility] [address] [place], [address], 04/10/2023 03:15:19 04/06/2004/10/2023 COMPR EHENS LUPE METAB OLIC PANEL globulin 2.5 g/dL_ (calc ) 1.9-3. 7 normal Not Available [address], [address], 04/10/2023 03:15:19 04/06/2004/10/2023 COMPR EHENS LUPE METAB OLIC PANEL albumin/glob ulin ratio 1.7 (calc ) 1.0-2. 5 normal Not Available [address] [address] [place], [address], 04/10/2023 03:15:19 04/06/2004/10/2023 COMPR EHENS LUPE METAB OLIC PANEL bilirubin, total 0.5 mg/dL 0.2-1. 2 normal Not Available [address] [address] [place], [address], 04/10/2023 03:15:19 04/06/2004/10/2023 COMPR EHENS LUPE METAB OLIC PANEL alkaline phosphatase 90 U/L 37-153 normal Not Available [address] [address] [place], [address], 04/10/2023 03:15:19 04/06/2004/10/2023 COMPR EHENS LUPE METAB OLIC PANEL AST 17 U/L 10-35 normal Not Available [address], [address], 04/10/2023 03:15:19 04/06/2004/10/2023 COMPR EHENS LUPE METAB OLIC PANEL ALT 32 U/L 6-29 high Not Available [address], [address], 04/10/2023 03:15:19 04/06/2004/10/2023 HEMOG LOBIN A1C hemoglobin A1C 7.3 %_of_ total _HGB <5.7 high For someo ne witho ut known diabe srinath, a hemog lobin A1c value of 6.5% or great er indic ates that they may have diabe srinath and this shoul d be confi rmed with a follo w-up test. For someo ne with known diabe srinath, a value <7% indic ates that their diabe srinath is well contr olled and a value great er than or equal to 7% indic ates subop timal contr ol. A1c targe ts shoul d be indiv idual ized based on durat ion of diabe srinath, age, comor bid condi tions , and other consi derat ions. Curre ntly, no conse nsus exist s regar ding use of hemog lobin A1c for diagn osis of diabe srinath for child delfin. Not Available [address], [address], 04/10/2023 03:15:20 04/06/20 23 04/10/2023 TSH TSH 2.86 mIU/L normal Refer ence Range > or = 20 Years 0.40- 4.50 Pregn aubrey Range s First trime ster 0.26- 2.66 Secon d trime ster 0.55- 2.73 Third trime ster 0.43- 2.91 Not Available [address], [address], 04/10/2023 03:15:20 04/06/2004/10/2023 T4, FREE T4, free 1.0 NG/dL 0.8-1. 8 normal Not Available [facility] [address], [address], 04/10/2023 03:15:21 04/06/2004/10/2023 CBC (INCL UDES DIFF/ PLT) white blood cell count 6.7 thous and/u L 3.8-10 .8 normal Not Available [facility] [address], [address], 04/10/2023 03:15:22 04/06/2004/10/2023 CBC (INCL UDES DIFF/ PLT) red blood cell count 4.59 kaylene on/uL 3.80-5 .10 normal Not Available [facility] [address], [address], 04/10/2023 03:15:22 04/06/20 23 04/10/2023 CBC (INCL UDES DIFF/ PLT) hemoglobin 14.1 g/dL 11.7-1 5.5 normal Not Available [address], [address], 04/10/2023 03:15:22 04/06/20 23 04/10/2023 CBC (INCL UDES DIFF/ PLT) hematocrit 42.4 % 35.0-4 5.0 normal Not Available [address], [address], 04/10/2023 03:15:22 04/06/20 23 04/10/2023 CBC (INCL UDES DIFF/ PLT) MCV 92.4 fL 80.0-1 00.0 normal Not Available [address], [address], 04/10/2023 03:15:22 04/06/20 23 04/10/2023 CBC (INCL UDES DIFF/ PLT) MCH 30.7 pg 27.0-3 3.0 normal Not Available [address], [address], 04/10/2023 03:15:22 04/06/20 23 04/10/2023 CBC (INCL UDES DIFF/ PLT) MCHC 33.3 g/dL 32.0-3 6.0 normal Not Available [address], [address], 04/10/2023 03:15:22 04/06/20 23 04/10/2023 CBC (INCL UDES DIFF/ PLT) RDW 12.1 % 11.0-1 5.0 normal Not Available [address], [address], 04/10/2023 03:15:22 04/06/20 23 04/10/2023 CBC (INCL UDES DIFF/ PLT) platelet count 221 thous and/u L 140-40 0 normal Not Available [address] [place], [address], 04/10/2023 03:15:22 04/06/20 23 04/10/2023 CBC (INCL UDES DIFF/ PLT) MPV 12.1 fL 7.5-12 .5 normal Not Available [address], [address], 04/10/2023 03:15:22 04/06/20 23 04/10/2023 CBC (INCL UDES DIFF/ PLT) absolute neutrophils 3658 cells /uL 1500-7 800 normal Not Available [address], [address], 04/10/2023 03:15:22 04/06/20 23 04/10/2023 CBC (INCL UDES DIFF/ PLT) absolute lymphocytes 2399 cells /uL 850-39 00 normal Not Available [address], [address], 04/10/2023 03:15:22 04/06/20 23 04/10/2023 CBC (INCL UDES DIFF/ PLT) absolute monocytes 415 cells /uL 200-95 0 normal Not Available [address], [address], 04/10/2023 03:15:22 04/06/20 23 04/10/2023 CBC (INCL UDES DIFF/ PLT) absolute eosinophils 147 cells /uL 15-500 normal Not Available [address], [address], 04/10/2023 03:15:22 04/06/20 23 04/10/2023 CBC (INCL UDES DIFF/ PLT) absolute basophils 80 cells /uL 0-200 normal Not Available [address], [address], 04/10/2023 03:15:22 04/06/20 23 04/10/2023 CBC (INCL UDES DIFF/ PLT) neutrophils 54.6 % normal Not Available [address], [address], 04/10/2023 03:15:22 04/06/20 23 04/10/2023 CBC (INCL UDES DIFF/ PLT) lymphocytes 35.8 % normal Not Available [address], [address], 04/10/2023 03:15:22 04/06/20 23 04/10/2023 CBC (INCL UDES DIFF/ PLT) monocytes 6.2 % normal Not Available [address], [address], 04/10/2023 03:15:22 04/06/20 23 04/10/2023 CBC (INCL UDES DIFF/ PLT) eosinophils 2.2 % normal Not Available [address], [address], 04/10/2023 03:15:22 04/06/2004/10/2023 CBC (INCL UDES DIFF/ PLT) basophils 1.2 % normal Not Available [address], [address], 04/10/2023 03:15:22 04/06/20 23 04/10/2023 URINA LYSIS , COMPL ETE W/REF ANNETTE TO CULTU RE color YELLOW yellow normal Not Available [address], [address], 04/10/2023 03:15:23 04/06/20 23 04/10/2023 URINA LYSIS , COMPL ETE W/REF ANNETTE TO CULTU RE appearance CLEAR clear normal Not Available [address], [address], 04/10/2023 03:15:23 04/06/20 23 04/10/2023 URINA LYSIS , COMPL ETE W/REF ANNETTE TO CULTU RE specific gravity 1.023 1.001- 1.035 normal Not Available [address], [address], 04/10/2023 03:15:23 04/06/20 23 04/10/2023 URINA LYSIS , COMPL ETE W/REF ANNETTE TO CULTU RE pH 5.5 5.0-8. 0 normal Not Available [address], [address], 04/10/2023 03:15:23 04/06/20 23 04/10/2023 URINA LYSIS , COMPL ETE W/REF ANNETTE TO CULTU RE glucose NEGATI VE negati ve normal Not Available [address], [address], 04/10/2023 03:15:23 04/06/20 23 04/10/2023 URINA LYSIS , COMPL ETE W/REF ANNETTE TO CULTU RE bilirubin NEGATI VE negati ve normal Not Available [address], [address], 04/10/2023 03:15:23 04/06/20 23 04/10/2023 URINA LYSIS , COMPL ETE W/REF ANNETTE TO CULTU RE ketones TRACE negati ve abnormal Not Available [address], [address], 04/10/2023 03:15:23 04/06/20 23 04/10/2023 URINA LYSIS , COMPL ETE W/REF ANNETTE TO CULTU RE occult blood NEGATI VE negati ve normal Not Available [address], [address], 04/10/2023 03:15:23 04/06/20 23 04/10/2023 URINA LYSIS , COMPL ETE W/REF ANNETTE TO CULTU RE protein NEGATI VE negati ve normal Not Available [address] [place], [address], 04/10/2023 03:15:23 04/06/20 23 04/10/2023 URINA LYSIS , COMPL ETE W/REF ANNETTE TO CULTU RE nitrite NEGATI VE negati ve normal Not Available [address] [address] [place], [address], 04/10/2023 03:15:23 04/06/20 23 04/10/2023 URINA LYSIS , COMPL ETE W/REF ANNETTE TO CULTU RE leukocyte esterase NEGATI VE negati ve normal Not Available [address], [address], 04/10/2023 03:15:23 04/06/20 23 04/10/2023 URINA LYSIS , COMPL ETE W/REF ANNETTE TO CULTU RE WBC 0-5 /hpf < or = 5 normal Not Available [address], [address], 04/10/2023 03:15:23 04/06/20 23 04/10/2023 URINA LYSIS , COMPL ETE W/REF ANNETTE TO CULTU RE RBC NONE SEEN /hpf < or = 2 normal Not Available [address], [address], 04/10/2023 03:15:23 04/06/20 23 04/10/2023 URINA LYSIS , COMPL ETE W/REF ANNETTE TO CULTU RE squamous epithelial cells 0-5 /hpf < or = 5 Not Available [address] [address] [place], [address], 04/10/2023 03:15:23 04/06/20 23 04/10/2023 URINA LYSIS , COMPL ETE W/REF ANNETTE TO CULTU RE bacteria FEW /hpf none seen abnormal Not Available [address], [address], 04/10/2023 03:15:23 04/06/20 23 04/10/2023 URINA LYSIS , COMPL ETE W/REF ANNETTE TO CULTU RE hyaline cast NONE SEEN /lpf none seen normal Not Available [address], [address], 04/10/2023 03:15:23 04/06/20 23 04/10/2023 URINA LYSIS , COMPL ETE W/REF ANNETTE TO CULTU RE note This urine was adelaida zed for the prese nce of WBC, RBC, bacte jeremi, casts , and other forme d eleme nts. Only those eleme nts seen were repor richard. Not Available [address], [address], 04/10/2023 03:15:23 04/06/20 23 04/10/2023 REFLE XIVE URINE CULTU RE reflexive urine culture NO CULTU RE INDIC ATED Not Available [address], [address], 04/10/2023 03:15:24 04/06/20 23 04/10/2023 VITAM IN B12/F OLATE , SERUM PANEL vitamin B12 661 pg/mL 200-11 00 normal Not Available [address], [address], 04/10/2023 03:15:24 04/06/2004/10/2023 VITAM IN B12/F OLATE , SERUM PANEL folate, serum >24.0 NG/mL normal Refer ence Range Low: <3.4 Borde rline : 3.4-5 .4 Benita l: >5.4 Not Available [address], [address], 04/10/2023 03:15:24 04/06/20 23 04/10/2023 PROGE STERO NE progesterone 0.7 NG/mL normal Refer ence Range s Femal e Folli cular Phase < 1.0 Lutea l Phase 2.6-2 1.5 Post menop ausal < 0.5 Pregn aubrey 1st Trime ster 4.1-3 4.0 2nd Trime ster 24.0- 76.0 3rd Trime ster 52.0- 302.0 Not Available [employer] [facility] [address] [place], [address], 04/10/2023 03:15:25 04/06/2004/10/2023 ESTRA DIOL estradiol 108 pg/mL normal Refer ence Range Folli cular Phase : 19-14 4 Mid-C ycle: 64-35 7 Lutea l Phase : 56-21 4 Postm enopa usal: < or = 31 Refer ence range estab lishe d on post- puber josi patie nt popul ation . No pre-p ubert al refer ence range estab lishe d using this assay . For any patie nts for whom low Estra diol level s are antic ipate d (e.g. males , pre-p ubert al child delfin and hypog onada l/pos t-men opaus al femal es), the [facility] Estra diol, Ultra sensi tive, LCMSM S assay is heidy mendes (orde r code 58162 ). Plescot e note: patie nts being treat ed with the drug fulve stran t (Fasl odex( R)) have demon strat ed signi fican t inter feren ce in immun oassa y metho ds for estra diol measu remen t. The cross react ivity could lead to false ly eleva richard estra diol test resul ts leadi ng to an inapp ropri ate clini aakash asses sment of estro gen statu s. [facility] order code 12204 -Estr adiol , Ultra sensi tive LC/MS /MS demon strat es negli gible cross react ivity with fulve stran t. Not Available [employer] [facility] [address] [place], [address], 04/10/2023 03:15:26 04/06/2004/10/2023 TESTO STERO NE, TOTAL , MS testosterone , total, MS 31 NG/dL 2-45 For addit ional infor maria del carmen golden e refer to https ://ed ucati on.qu [employer]IA [employer]. com/f aq/To Vicky correa LCMSM S (This link is being provi ded for infor jerardo nal/e ducat ional purpo ses only. ) (Note ) This test was devel oped and its adelaida tical perfo rmanc e polo cteri stics have been deter mined by [employer]. It has not been clear ed or appro eugene by the FDA. This assay has been valid ated pursu ant to the CLIA regul ation s and is used for clini aakash purpo ses. F santosh william [address] [facility] [address] [place] [address] [phone] Brett cleveland MD Not Available [employer] [address], [address], 04/10/2023 03:15:27 01/27/20 24 01/28/2024 TSH+F REE T4 TSH 2.56 mIU/L normal Refer ence Range > or = 20 Years 0.40- 4.50 Pregn aubrey Range s First trime ster 0.26- 2.66 Secon d trime ster 0.55- 2.73 Third trime ster 0.43- 2.91 Not Available [employer] [address], [address], 01/28/2024 04:18:27 01/27/20 24 01/28/2024 TSH+F REE T4 T4, free 1.1 NG/dL 0.8-1. 8 normal Not Available [employer] [address], [address], 01/28/2024 04:18:27 01/27/20 24 01/28/2024 LIPID PANEL WITH RATIO S cholesterol, total 229 mg/dL <200 high Not Available [employer] [facility] [address] [place] [address], [address], 01/28/2024 04:18:28 01/27/20 24 01/28/2024 LIPID PANEL WITH RATIO S HDL cholesterol 62 mg/dL > or = [address] [facility] [address] [place], [address], 01/28/2024 04:18:28 01/27/20 24 01/28/2024 LIPID PANEL WITH RATIO S triglyceride s 115 mg/dL <150 normal Not Available [address], [place], [address], 01/28/2024 04:18:28 01/27/20 24 01/28/2024 LIPID PANEL WITH RATIO S LDL-choleste rol 144 mg/dL _(aakash c) high Refer ence range : <100 Delmis able range <100 mg/dL for prima ry preve ntion ; <70 mg/dL for patie nts with CHD or diabe tic patie nts with > or = 2 CHD risk facto rs. LDL-C is now calcu lated using the Renetta n-Hop kins calcu maninder n, which is a valid ated novel chato reyes than the Fried helena equat ion in the estim ation of LDL-C . Renetta william SS et al. LARISSA. 2013; 310(1 9): 2061- 2068 (http ://ed ucati on.Qu Kelsey rider [employer]. com/f aq/FA Q164) Not Available [facility] [address] [place] [address], [place], [address], 01/28/2024 04:18:28 01/27/20 24 01/28/2024 LIPID PANEL WITH RATIO S chol/HDLC ratio 3.7 (calc ) <5.[address] [facility] [address] [place] [address], [address], 01/28/2024 04:18:28 01/27/20 24 01/28/2024 LIPID PANEL WITH RATIO S LDL/HDL ratio 2.3 (calc ) Below avera ge Risk: <2.34 Wheeler ge Risk: 2.35- 4.12 Moder ate Risk: 4.13- 5.56 High Risk: >5.57 Not Available [address], [address], 01/28/2024 04:18:28 01/27/20 24 01/28/2024 LIPID PANEL WITH RATIO S non HDL cholesterol 167 mg/dL _(aakash c) <130 high For patie nts with diabe srinath plus 1 major ASCVD risk facto r, treat ing to a non-H DL-C goal of <100 mg/dL (LDL- C of <70 mg/dL ) is nedai saba quan optio n. Not Available [employer] [address], [address], 01/28/2024 04:18:28 01/27/2001/28/2024 COMPR EHENS LUPE METAB OLIC PANEL glucose 252 mg/dL 65-99 high Fasti ng refer ence inter priyanka For someo ne witho ut known diabe srinath, a gluco se value >125 mg/dL indic ates that they may have diabe srinath and this shoul d be confi rmed with a follo w-up test. Not Available [address], [address], 01/28/2024 04:18:29 01/27/2001/28/2024 COMPR EHENS LUPE METAB OLIC PANEL urea nitrogen (BUN) 13 mg/dL 7-25 normal Not Available [facility] [employer] [facility] [address] [place], [address], 01/28/2024 04:18:29 01/27/20 24 01/28/2024 COMPR EHENS LUPE METAB OLIC PANEL creatinine 0.71 mg/dL 0.50-1 .03 normal Not Available [employer] [address], [address], 01/28/2024 04:18:29 01/27/20 24 01/28/2024 COMPR EHENS LUPE METAB OLIC PANEL eGFR 102 mL/mi n/1.7 3m2 > or = 60 normal Not Available [address], [address], 01/28/2024 04:18:29 01/27/20 24 01/28/2024 COMPR EHENS LUPE METAB OLIC PANEL BUN/creatini ne ratio SEE NOTE: (calc ) 6-22 Not Repor richard: BUN and Creat inine are withi n refer ence range . Not Available [address], [address], 01/28/2024 04:18:29 01/27/20 24 01/28/2024 COMPR EHENS LUPE METAB OLIC PANEL sodium 135 mmol/ L 135-14 6 normal Not Available [address], [address], 01/28/2024 04:18:29 01/27/20 24 01/28/2024 COMPR EHENS LUPE METAB OLIC PANEL potassium 4.3 mmol/ L 3.5-5. 3 normal Not Available [address], [address], 01/28/2024 04:18:29 01/27/20 24 01/28/2024 COMPR EHENS LUPE METAB OLIC PANEL chloride 102 mmol/ L 98-110 normal Not Available [address], [address], 01/28/2024 04:18:29 01/27/20 24 01/28/2024 COMPR EHENS LUPE METAB OLIC PANEL carbon dioxide 23 mmol/ L 20-32 normal Not Available [address], [address], 01/28/2024 04:18:29 01/27/20 24 01/28/2024 COMPR EHENS LUPE METAB OLIC PANEL calcium 9.1 mg/dL 8.6-10 .4 normal Not Available [address], [address], 01/28/2024 04:18:29 01/27/20 24 01/28/2024 COMPR EHENS LUPE METAB OLIC PANEL protein, total 6.7 g/dL 6.1-8. 1 normal Not Available [address], [address], 01/28/2024 04:18:29 01/27/20 24 01/28/2024 COMPR EHENS LUPE METAB OLIC PANEL albumin 4.2 g/dL 3.6-5. 1 normal Not Available [address], [address], 01/28/2024 04:18:29 01/27/20 24 01/28/2024 COMPR EHENS LUPE METAB OLIC PANEL globulin 2.5 g/dL_ (calc ) 1.9-3. 7 normal Not Available [address], [address], 01/28/2024 04:18:29 01/27/20 24 01/28/2024 COMPR EHENS LUPE METAB OLIC PANEL albumin/glob ulin ratio 1.7 (calc ) 1.0-2. 5 normal Not Available [address], [address], 01/28/2024 04:18:29 01/27/20 24 01/28/2024 COMPR EHENS LUPE METAB OLIC PANEL bilirubin, total 0.7 mg/dL 0.2-1. 2 normal Not Available [address], [address], 01/28/2024 04:18:29 01/27/20 24 01/28/2024 COMPR EHENS LUPE METAB OLIC PANEL alkaline phosphatase 90 U/L 37-153 normal Not Available [facility] [employer] [address] [place], [address], 01/28/2024 04:18:29 01/27/20 24 01/28/2024 COMPR EHENS LUPE METAB OLIC PANEL AST 14 U/L 10-35 normal Not Available [facility] [address], [place], [address], 01/28/2024 04:18:29 01/27/20 24 01/28/2024 COMPR EHENS LUPE METAB OLIC PANEL ALT 29 U/L 6-29 normal Not Available [facility] [address], [place], [address], 01/28/2024 04:18:29 01/27/20 24 01/28/2024 HEMOG LOBIN A1C hemoglobin A1C 9.3 %_of_ total _HGB <5.7 high For someo ne witho ut known diabe srinath, a hemog lobin A1c value of 6.5% or great er indic ates that they may have diabe srinath and this shoul d be confi rmed with a follo w-up test. For someo ne with known diabe srinath, a value <7% indic ates that their diabe srinath is well contr olled and a value great er than or equal to 7% indic ates subop timal contr ol. A1c targe ts shoul d be indiv idual ized based on durat ion of diabe srinath, age, comor bid condi tions , and other consi derat ions. Curre ntly, no conse nsus exist s regar ding use of hemog lobin A1c for diagn osis of diabe srinath for child delfin. This test was perfo rmed on the [employer] [facility] platf orm. Effec tive , a mohan evangelista in test platf orms from the [employer] t[employer] to the [employer] may have shift ed HbA1c resul ts leatha red to histo rical resul ts. Based on labor atory valid ation testi ng condu cted at [facility] [employer] , the You platf orm relat lupe to the [employer] platf orm had an avera ge incre ase in HbA1c value of < or = 0.3%. This diffe rence is withi n accep richard varia bilit y estab lishe d by the [facility] hemog lobin Stand ann-marie muller Progr am. Note that not all indiv idual s will have had a shift in their resul ts and direc t leatha rison s betwe en histo rical and curre nt resul ts for testi ng condu cted on diffe rent platf orms is not recom kulwinder d. Not Available [address] [address] [place], [address], 01/28/2024 04:18:30 01/27/2001/28/2024 CBC (INCL UDES DIFF/ PLT) white blood cell count 6.7 thous and/u L 3.8-10 .8 normal Not Available [address] [address] [place], [address], 01/28/2024 04:18:31 01/27/20 24 01/28/2024 CBC (INCL UDES DIFF/ PLT) red blood cell count 4.74 kayelne on/uL 3.80-5 .10 normal Not Available [address] [address] [place], [address], 01/28/2024 04:18:31 01/27/20 24 01/28/2024 CBC (INCL UDES DIFF/ PLT) hemoglobin 14.6 g/dL 11.7-1 5.5 normal Not Available [facility] [address] [place], [address], 01/28/2024 04:18:31 01/27/20 24 01/28/2024 CBC (INCL UDES DIFF/ PLT) hematocrit 44.5 % 35.0-4 5.0 normal Not Available [facility] [address] [address] [place], [address], 01/28/2024 04:18:31 01/27/20 24 01/28/2024 CBC (INCL UDES DIFF/ PLT) MCV 93.9 fL 80.0-1 00.0 normal Not Available [address], [address], 01/28/2024 04:18:31 01/27/20 24 01/28/2024 CBC (INCL UDES DIFF/ PLT) MCH 30.8 pg 27.0-3 3.0 normal Not Available [address], [address], 01/28/2024 04:18:31 01/27/20 24 01/28/2024 CBC (INCL UDES DIFF/ PLT) MCHC 32.8 g/dL 32.0-3 6.0 normal Not Available [address], [address], 01/28/2024 04:18:31 01/27/20 24 01/28/2024 CBC (INCL UDES DIFF/ PLT) RDW 12.1 % 11.0-1 5.0 normal Not Available [address], [address], 01/28/2024 04:18:31 01/27/20 24 01/28/2024 CBC (INCL UDES DIFF/ PLT) platelet count 210 thous and/u L 140-40 0 normal Not Available [address], [address], 01/28/2024 04:18:31 01/27/20 24 01/28/2024 CBC (INCL UDES DIFF/ PLT) MPV 11.9 fL 7.5-12 .5 normal Not Available [address], [address], 01/28/2024 04:18:31 01/27/20 24 01/28/2024 CBC (INCL UDES DIFF/ PLT) absolute neutrophils 3310 cells /uL 1500-7 800 normal Not Available [address], [address], 01/28/2024 04:18:31 01/27/20 24 01/28/2024 CBC (INCL UDES DIFF/ PLT) absolute lymphocytes 2801 cells /uL 850-39 00 normal Not Available [address], [address], 01/28/2024 04:18:31 01/27/20 24 01/28/2024 CBC (INCL UDES DIFF/ PLT) absolute monocytes 415 cells /uL 200-95 0 normal Not Available [facility] [address], [address], 01/28/2024 04:18:31 01/27/20 24 01/28/2024 CBC (INCL UDES DIFF/ PLT) absolute eosinophils 127 cells /uL 15-500 normal Not Available [facility] [address], [address], 01/28/2024 04:18:31 01/27/20 24 01/28/2024 CBC (INCL UDES DIFF/ PLT) absolute basophils 47 cells /uL 0-200 normal Not Available [employer] [address], [address], 01/28/2024 04:18:31 01/27/20 24 01/28/2024 CBC (INCL UDES DIFF/ PLT) neutrophils 49.4 % normal Not Available [address], [address], 01/28/2024 04:18:31 01/27/20 24 01/28/2024 CBC (INCL UDES DIFF/ PLT) lymphocytes 41.8 % normal Not Available [address], [address], 01/28/2024 04:18:31 01/27/20 24 01/28/2024 CBC (INCL UDES DIFF/ PLT) monocytes 6.2 % normal Not Available [facility] [address], [address], 01/28/2024 04:18:31 01/27/20 24 01/28/2024 CBC (INCL UDES DIFF/ PLT) eosinophils 1.9 % normal Not Available [address] [address] [place], [address], 01/28/2024 04:18:31 01/27/20 24 01/28/2024 CBC (INCL UDES DIFF/ PLT) basophils 0.7 % normal Not Available [address] [address] [place], [address], 01/28/2024 04:18:31 06/29/20 21 06/26/2021 MAMMO , scree katrin, digit al, bilat eral No observ ation record ed. [id number] [facility] [address] [place], [address], 12/22/2022 03:07:30 06/29/20 21 MAMMO , scree katrin, digit al, bilat eral [facility] [address] [place] [address] [phone] Patien t Name: JOAN LANDERS [facility] ion #: [id number] Sex: F : 1969 8 Locati on: RA2 Attend ing Physic akshat: NAIMA RENDON Orderi ng Physic akshat: NAIMA RENDON Exam Date: 06/26/20 21 8:16 AM Exam Name: MG DIGITA L CAITY BILAT SCREEN Admitt ing Diagno sis(es ): RADIOL OGY REPORT - FINAL EXAM: MG DIGITA L CAITY BILAT SCREEN HISTOR Y: Screen ing mammog margaret 51-yea r-old female with no curren t breast compla ints. COMPAR PANCHO: Mammog kathleen dated 2019, 2019, 2012. TECHNI QUE: Bilate ral CC and MLO views of the breast s were perfor med. Digita l Mammog kathleen images were obtain ed. CAD (compu ter assist ed detect ion) was utiliz ed. FINDIN GS: The breast s are hetero geneou sly dense, which may obscur e small masses . No new masses , develo ping asymme tries, suspic ious calcif icatio ns, or gordo ectura l distor tion are seen. Page 1 of 2 [facility] Hubert weeks Name: JOAN LANDERS Access ion #: [id number] Sex: F : 1969 8 Exam Date: 06/26/20 8:16 AM Exam Name: MG GANESH L CAITY BILAT SCREEN Admitt ing Diagno sis(es ): IMPRES JOEL: BIRADS 1: Assess ment comple te. Negati ve. Recomm end annual screen ing mammog kathleen. Accord ing to the [employer], yearly mammog marita are recomm ended starti ng at age 40 and contin uing as long as the woman is in good health . Clinic al Breast Exam should be part of the period ic health exam-a bout every 3 years for women in their 20s and 30s and every year for women 40 and over. Breast self-e xam is an option for women in their 20s. Any breast change noted on the breast self-e xam she would be report ed prompt ly to the [facility]. A negati ve mammog kathleen report should not discou rage follow -up or biopsy of a clinic ally signif icant findin g and/or abnorm ality. Dense breast tissue may obscur e small neopla sms. This hubert weeks has been entere d into a mammog kathleen remind er system with a target date for her next mammog margaret. Create d and electr onical ly signed by: Shin evangelista MD Signed Date: 06/29/20 10:00 PM (CT) Dictat ed by: Shin evangelista MD (CT) (CT) Page 2 of 2 [id number] [facility] (Imaging) [address] [place], [address], 12/22/2022 03:07:30 06/30/20 21 06/26/2021 MAMMO , scree katrin, digit al, bilat eral No observ ation record ed. MIGRATION. [facility] [address] [place], [address], 12/22/2022 03:07:30 10/01/20 21 10/01/2021 XR, cervi aakash spine No observ ation record ed. MIGRATION. [address] , [place], [address], 12/22/2022 03:07:30 10/01/20 21 10/01/2021 XR, cantu oclav icula r joint (s) No observ ation record ed. MIGRATION. [address] , [place], [address], 12/22/2022 03:07:30 10/08/20 21 10/08/2021 US, abdom en, compl ete No observ ation record ed. MIGRATION. [facility] [address] [place], [address], 12/22/2022 03:07:30 10/14/20 21 10/01/2021 XR, cantu oclav icula r joint (s) No observ ation record ed. MIGRATION. [facility] [address] [place], [address], 12/22/2022 03:07:30 03/17/20 22 02/18/2022 US, pelvi s, compl ete No observ ation record ed. MIGRATION. [place] [address], [place], [address], 12/22/2022 03:07:30 08/30/20 22 08/24/2022 MAMMO , diagn ostic , digit al, unila teral No observ ation record ed. [id number] [facility] [address] [place], [address], 12/22/2022 03:07:30 09/22/20 22 08/10/2022 MAMMO , scree katrin, digit al, bilat eral No observ ation record ed. [id number] [facility] [address], [place], [address], 12/22/2022 03:07:30 11/01/19 23 09/23/2022 XR, elbow No observ ation record ed. [id number] [facility] [place] [address], [place], [address], 12/22/2022 03:07:30 04/11/20 23 04/11/2023 CT, abdom en, w/ contr ast No observ ation record ed. [email or web address] [facility] [address], [place], [address], 05/11/2023 09:22:45 05/31/20 23 05/31/2023 exerc ise stres s echoc ardio gram No observ ation record ed. [email or web address] [facility] [address], [place], [address], 06/01/2023 10:35:05 Result Notes None recorded. Problems Name Problem SNOMED Code Status Onset Date Resolution Date Notes Provider Name and Address Organization Details Recorded Time Benign essential hypertension 6559263 Active 2018 Not Available [employer] 3 02:58:30 Enlarged uterus 295954827 Active Not Available [employer] 3 02:58:30 Generalized anxiety disorder 21466375 Active 2018 Not Available [employer] 3 02:58:31 Hyperlipidemi a 69191285 Active 2018 Not Available [employer] 3 02:58:31 Left upper quadrant pain 057728319 Active 2022 DESTINI Smith [address], [place], [address] , [employer] 3 10:32:13 Acid reflux 860586466 Active 2022 DESTINI Smith [address], [place], [address] , [employer] 3 10:32:37 Type 2 diabetes mellitus without complication 985287603 Active 2022 DESTINI Smith [address], [place], [address] , [employer] 3 10:32:59 Atypical chest pain 141587015 Active 2022 DESTINI Smith [address], [place], [address] , [employer] 3 10:33:37 Uncontrolled type 2 diabetes mellitus 461452606 Active 2022 DESTINI Smith [address], [place], [address] , [employer] 3 09:23:20 Epigastric pain 71824586 Active 2022 DESTINI Smith [address], [place], [address] , [employer] 3 09:42:06 Cardiovascula r stress test abnormal 316582502 Active 2022 DESTINI Smith [address], [place], [address] , [employer] 3 09:46:50 Problem Notes None recorded. Procedures Surgical History Date Name Laterality Status Provider Name and Address Organization Details Recorded Time 06/26/20 21 Most Recent Mammogram completed Not Available [facility] 12/22/2022 02:51:27 06/12/20 21 Date of Last Pap Smear completed Not Available [facility] 12/22/2022 02:51:27 12/23/19 19 Date of Last Colonoscopy completed Not Available [facility] 12/22/2022 02:51:27 12/25/19 04 section completed Not Available [facility] 12/22/2022 02:51:32 Tubal Ligation completed [facility] 12/22/2022 02:51:32 Imaging Results Imaging Date Name Status LastModified by Organization Details LastModified Time 02/18/2022 US, pelvis, complete completed [id number] [facility] [address], [place], [address], 12/22/2022 03:07:30 09/23/2022 XR, elbow completed [id number] [facility] [address], [place], [address], 12/22/2022 03:07:30 06/26/2021 MAMMO, screening, digital, bilateral completed [id number] [facility] [address] [place], [address], 12/22/2022 03:07:30 06/29/2021 MAMMO, screening, digital, bilateral completed [id number] [facility] [address] [place], [address], 12/22/2022 03:07:30 06/26/2021 MAMMO, screening, digital, bilateral completed [id number] [facility] [address] [place], [address], 12/22/2022 03:07:30 10/01/2021 XR, sternoclavicular joint(s) completed [id number] [facility] [address] [place], [place], [address], 12/22/2022 03:07:30 10/01/2021 XR, cervical spine completed MIGRATION .[id number] , [place], [address], 12/22/2022 03:07:30 10/01/2021 XR, sternoclavicular joint(s) completed MIGRATION.[id number] , [place], [address], 12/22/2022 03:07:30 10/08/2021 US, abdomen, complete completed MIGRATION.[id number] [facility] [address] [place], [address], 12/22/2022 03:07:30 08/24/2022 MAMMO, diagnostic, digital, unilateral completed MIGRATION.[id number] [facility] [address] [place], [address], 12/22/2022 03:07:30 08/10/2022 MAMMO, screening, digital, bilateral completed MIGRATION.[id number] [facility] [address] [place], [address], 12/22/2022 03:07:30 04/11/2023 CT, abdomen, w/ contrast completed [email or web address] [address] , [place], [address], 05/11/2023 09:22:45 05/31/2023 exercise stress echocardiogram completed [email or web address] [facility] [address], [place], [address], 06/01/2023 10:35:05 Procedure Notes None recorded. Medical Equipment None Reported. Allergies No known drug allergies Medications Name Sig Start Date Stop Date Status Note LastModified by Organization Details LastModified Time losartan 50 mg tablet active Not Available Not Available No t Available atorvastati n 40 mg tablet TAKE 1 TABLET BY MOUTH EVERY DAY active Not Available Not Available No t Available atorvastati n 20 mg tablet TAKE 1 AND 1/2 TABLETS BY MOUTH EVERY DAY 07/12 completed Not Available Not Available Not Available venlafaxine 75 mg tablet TAKE 1 TABLET BY MOUTH EVERY DAY WITH FOOD active Not Available Not Available No t Available atorvastati n 10 mg tablet TK 1 T PO QD 07/11 completed Not Available Not Available Not Available fluconazole 150 mg tablet TAKE 1 TABLET EVERY 3 DAYS UNTIL GONE 05/10 completed Not Available Not Available Not Available spironolact one 100 mg tablet active Not Available Not Available Not Available atenolol 25 mg tablet TK 1 T PO QD 01/17 completed Not Available Not Available Not Available ciprofloxac in 500 mg tablet TAKE 1 TABLET BY MOUTH EVERY 12 HOURS 05/04 completed Not Available Not Available Not Available triamcinolo ne acetonide 0.1 % topical cream active Not Available Not Available Not Available pantoprazol e 40 mg tablet,indu yed release TAKE 1 TABLET BY MOUTH EVERY DAY IN THE MORNING active Not Available Not Available No t Available tacrolimus 0.1 % topical ointment active Not Available Not Available Not Available triamcinolo ne acetonide 0.1 % topical ointment APPLY A THIN LAYER TO THE AFFECTED AREA(S) BY TOPICAL ROUTE 2 TIMES PER DAY active Not Available Not Available No t Available misoprostol 200 mcg tablet Take 2 tablets by oral route at bedtime for 1 day. 06/11 completed Not Available Not Available Not Available cefdinir 300 mg capsule Take 2 capsules every day by oral route at dinner. active Not Available Not Available No t Available nitrofurant oin monohydrate /macrocryst als 100 mg capsule TK 1 C PO Q 12 H 06/11 completed Not Available Not Available Not Available Prilosec daily 07/11 completed Not Available Not Available Not Available Nexium one tab daily 2018 active Not Available Not Available Not Avai lable peg 3350 240 gram-electr olytes 22.72 gram-6.72 g-5.84 g powdr for soln MIX AND DRINK UTD 06/11 completed Not Available Not Available Not Available Mounjaro 2.5 mg/0.5 mL subcutaneou s pen injector Inject 2.5 mg every week by subcutane ous route as directed. 2022 active Not Available Not Available Not Avai lable Vitals Date Recorded Body temperature Body weight Heart rate Oxygen saturation Oxygen saturation in Arterial blood by Pulse oximetry Body mass index (BMI) Body height Systolic blood pressure Diastolic blood pressure Provider Name and Address Organization Details Last Updated DateTime 3 97.7 [degF] 38139.9 2 g 78 /min 98 % 98 % 31.3 kg/m2 167.64 cm 122 mm[Hg] 90 mm[Hg] Esme Werner RN [facility] [employer] [facility] 3 10:09:37 Date Recorded Body height Body temperature Body mass index (BMI) Body weight Heart rate Oxygen saturation Oxygen saturation in Arterial blood by Pulse oximetry Systolic blood pressure Diastolic blood pressure Provider Name and Address Organization Details Last Updated DateTime 3 167.64 cm 97.6 [degF] 31.5 kg/m2 81054.5 1 g 97 /min 97 % 97 % 118 mm[Hg] 84 mm[Hg] Esme Werner RN [facility] [employer] [facility] 3 09:15:46 Date Recorded Systolic blood pressure Diastolic blood pressure Provider Name and Address Organization Details Last Updated DateTime 05/11/2023 130 mm[Hg] 80 mm[Hg] DESTINI Smith [address] [place] [address], [place], [address], [facility] [employer] [facility] 05/11/2023 09:44:00 Date Recorded Body mass index (BMI) Body height Body temperature Body weight Systolic blood pressure Diastolic blood pressure Provider Name and Address Organization Details Last Updated DateTime 1 30.3 kg/m2 165.1 cm 98 [degF] 57014.8 1 g 130 mm[Hg] 84 mm[Hg] Not Available [facility] 3 02:54:12 Date Recorded Body mass index (BMI) Body height Oxygen saturation Oxygen saturation in Arterial blood by Pulse oximetry Heart rate Body temperature Body weight Systolic blood pressure Diastolic blood pressure Provider Name and Address Organization Details Last Updated DateTime 1 29.9 kg/m2 165.1 cm 98 % 98 % 88 /min 97.5 [degF] 02888.4 7 g 118 mm[Hg] 80 mm[Hg] Not Available [facility] 3 02:54:12 Date Recorded Body mass index (BMI) Body height Oxygen saturation Oxygen saturation in Arterial blood by Pulse oximetry Heart rate Body temperature Body weight Systolic blood pressure Diastolic blood pressure Provider Name and Address Organization Details Last Updated DateTime 1 29.9 kg/m2 165.1 cm 98 % 98 % 80 /min 97.9 [degF] 99756.4 7 g 120 mm[Hg] 80 mm[Hg] Not Available [facility] 3 02:54:12 Social History Question Answer Notes LastModified by Organizat ion Details LastModified Time Tobacco Smoking Status Former Smoker Esme Werner RN [facility], [place] [facility] [place] [employer] [facility] 03/30/2023 09:56:50 What Is Your Level Of Alcohol Consumption? Occasional [id number] Information not available 12/22/2022 What Is Your Level Of Caffeine Consumption? Occasional [id number] Information not available 12/22/2022 How Much Tobacco Do You Chew? None [id number] Information not available 12/22/2022 In The 14 Days Before Symptom Onset, Have You Had Close Contact With A Laboratory-confir med COVID-19 While That Case Was Ill? No [email or web address] Information not available 03/30/2023 In The 14 Days Before Symptom Onset, Have You Had Close Contact With A Person Who Is Under Investigation For COVID-19 While That Person Was Ill? No [email or web address] Information not available 03/30/2023 Are You Currently Employed? Yes [email or web address] Information not available 05/10/2023 What Type Of Diet Are You Following? REGULAR [id number] Information not available 12/22/2022 Which Illicit Or Recreational Drugs Have You Used? 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 No [email or web address] Information no t available 03/30/2023 Are There Any Guns Present In Your Home? No [email or web address] Information not available 03/30/2023 Do You Use Insect Repellent Routinely? No [email or web address] Information not available 05/10/2023 What Is Your Relationship Status? [id number] Information not available 12/22/2022 Do You Use Your Seat Belt Or Car Seat Routinely? Yes [email or web address] Information not available 03/30/2023 Do You Have Smoke And Carbon Monoxide Detectors In Your Home? Yes [email or web address] Information not available 03/30/2023 Do You Use Any Illicit Or Recreational Drugs? No [email or web address] Information not available 03/30/2023 Do You Use Sunscreen Routinely? Yes Information not available 05/10/2023 Have You Recently Traveled Abroad? No [email or web address] Information not available 03/30/2023 Do You Have Any Dietary Restrictions? No Information not available 03/30/2023 Do You Or Have You Ever Used Any Other Forms Of Tobacco Or Nicotine? No [email or web address] Information not available 03/30/2023 Sex: Female Functional Status Question Answer Note LastModified by Organizat ion Details LastModified Time What is your exercise level? Moderate [id number] Information not available 12/22/2022 Mental Status None recorded. Family History Relationship Description Onset Age of this Age Resolved Age Notes LastModified by Organization Details LastModified Time Father Malignant tumor of colon [email or web address] Not available 04/2023 09:56:50 Mother Arthritis Not avai lable 03/30/2023 09:56:50 Mother Diabetes mellitus [id number] Not available 12/22/2022 02:51:34 Unspecified Relation Heart disease [id number] Not available 12/22/2022 02:51:35 Unspecified Relation Alcoholism [email or web address] Not available 0 03/30/2023 09:56:50 Sister Diabetes mellitus [id number] Not available 12/22/2022 02:51:35 Notes:fathers side hx of emigdio ast cancer Medical History Condition Response NERVE DISEASE N BLINDNESS N RHEUMATIC FEVER N KIDNEY STONES N BLADDER PROBLEMS N OTHER # 1 N POLIO N LUNG DISEASE/DISORDER N RADIATION / CHEMOTHERAPY N COPD N Other # 2 N BLOOD DISEASES N SURGERY N EAR OR HEARING PROBLEMS N MUMPS N DEPRESSION (INCLUDING POST ) Y BOWEL PROBLEMS N STROKE/TIA N ULCERS N BENIGN PROSTATIC HYPERPLASIA N MEASLES N MYOCARDIAL INFARCTION N OBESITY N GERD/NAUSEA N ANEURYSM N URINARY/BLADDER/KIDNEY PROBLEMS N INPATIENT PSYCH CARE N CORONARY ARTERY DISEASE (CAD) N ADDICTION CONCERNS N Impotence N ENDOMETRIOSIS N USE OF BLOOD THINNERS N SKIN PROBLEMS Y GASTROINTESTINAL DISORDER N PERIPHERAL VASCULAR DISEASE N MUSCLE,JOINT OR BONE PROBLEMS N GASTROINTESTINAL BLEEDING N BLOOD CLOTS N ASTHMA Y CATARACTS N ERECTILE DYSFUNCTION N VARICOSITIES N GI PROBLEMS N Low Testosterone N INFERTILITY N AIDS/HIV N CHEMOTHERAPY / RADIATION N LIVER DISEASE N MALE HYPOGONADISM N HYPERTENSION N Deficiency N ANXIETY DISORDER Y BLOOD TRANSFUSION N ANEMIA/BLOOD DISORDER N CHRONIC EAR INFECTIONS N BRONCHITIS N TUBERCULOSIS N GLAUCOMA N FOOT PROBLEM N DIVERTICULITIS N SLEEP APNEA N CHICKENPOX N INFECTIOUS DISEASE N PROSTATE N HEART ARRHYTHMIA N INSOMNIA N HIGH CHOLESTEROL / HYPERLIPIDEMIA Y EYE PROBLEMS N HYPERTHYROIDISM N NEUROLOGICAL PROBLEMS N EDEMA N CHRONIC PAIN SYNDROME N HYPOTHYROIDISM N CAROTID BLOCKAGE N CONSTIPATION N BACK / NECK PROBLEMS Y HAVE YOU BEEN HOSPITALIZED OR SEEN IN [facility] IN THE PAST YEAR ? N ATHEROSCLEROSIS N BREAST PROBLEMS N DIALYSIS N ECZEMA N OSTEOPOROSIS N ARTHRITIS N NO SIGNIFICANT PAST MEDICAL HISTORY N APPENDICITIS N DIABETES, TYPE N BAD TEETH N ENT N HEARTBURN / REFLUX Y AUTISM SPECTRUM DISORDER (ASD) N HEPATITIS / LIVER DISEASE N PULMONARY DISEASE N GOUT N SLEEP DISORDER N ALZHEIMER'S DISEASE N Brain Problems N DEMENTIA N HERPES N SEIZURES/EPILEPSY N HEADACHES/MIGRAINES N VASCULAR DISEASE N PACEMAKER N Blood Disorder N DIZZINESS Y HEART DISEASE/HEART PROBLEMS N KIDNEY DISEASE N MULTIPLE SCLEROSIS N CANCER: SPECIFY N CARDIAC ARRHYTHMIA N ANESTHESIA COMPLICATIONS N ATRIAL FIBRILLATION N Gall Stones N PULMONARY EMBOLISM N AUTOIMMUNE DISEASE N Gynecological History Statement/Question Response Abnormal Pap N Date of Last Mammogram 07/07/2020 Date of Last Colonoscopy 12/22/2018 Date of LMP Sexually Active? Y Date of Last Pap 11/24/2016 Date of Last Pap Smear 06/12/2021 Current Control Method Tubal Ligat ion Most Recent Mammogram 06/26/2021 Obstetrics History GPAL:G 2 P 0 0 0 2 Type Value Living 2 Total 2 Immunizations Vaccine Type Date Status Note Provider Nam e and Address Organization Details Recorded Time Influenza A monovalent (H5N1), ADJUVANTED-2012 1 completed Not Available [facility] 12/22/2022 03:06:40 COVID-19, mRNA, LNP-S, PF, 30 mcg/0.3 mL dose 1 completed Not Available [facility] 12/22/2022 03:06:40 Influenza, split virus, quadrivalent, preservative 0 completed Not Available [facility] 12/22/2022 03:06:40 Past Encounters Encounter ID Performer Location Encounter Start Date Encounter Closed Date Diagnosis/Indication Diagnosis SNOMED-CT Code Diagnosis ICD10 Code Diagnosis Note [id number] [facility] [address] [place] [address] 01/09/2021 00:00:00 01/11/2021 19:33:20 [id number] _MAURI_M IGRATION_ DEFAULT_1 _1 , 05/04/2021 00:00:00 05/04/2021 17:00:15 [id number] _MAURI_M IGRATION_ DEFAULT_1 _1 , 06/12/2021 00:00:00 06/12/2021 11:43:45 [id number] [facility] [address] [place] [address] 07/10/2021 00:00:00 07/12/2021 13:12:24 [id number] S[facility] Internal [facility] [address] [place] [address] 10/01/2021 00:00:00 10/22/2021 13:51:08 [id number] DESTINI Smith [facility] Internal Med [facility] [address] [facility] [place] [address] 03/30/2023 09:56:40 03/30/2023 10:45:07 Left upper quadrant pain 774524864 R10.[address] scan abdomen w/c. Left upper quadrant predominan t pain on exam Acid reflux 430421874 K2 1.9 ongoing reflux , refractory to PPI therapy. refer for baseline EGD Type 2 jairo betes mellitus without complication 150961461 E11.9 dietary and exercise managed. due for A1c and albumin labs Hyperlipidemia 05626496 E78.5 stable on atorvastat in 40mg daily. due for fasting labs Thyroid di sorder screening 786072277 Z13.29 TFTs due Long-term drug therapy 427314783 Z79.899 all routine labs are due Atypical chest pain 1025 44278 R07.89 reported anterior chest pain at times mid sternal region to left side. refer for exercise stress echo testing Benign ess ential hypertension 7646150 I10 stable on losartan 50mg daily Perimenopausal state 761 [id number] 96313 Z78.0 pt would like hormone labs checked [id number] DESTINI Smith [facility] [address] [place] [address] 05/11/2023 09:09:33 05/11/2023 09:50:27 Adult health examination 157842179 Z00.01 well exam completed Uncontrol ed type 2 diabetes mellitus 290366426 E11.65 7.3% a1c. mounjaro 2.5mg weekly RX start. repeat labs in sep. Benign ess ential hypertension 1632727 I10 stable on losartan 50mg daily Hyperlipidemia 30782074 E78.5 stable on atorvastat in 40mg daily. due for fasting labs again in sep. Generalize d anxiety disorder 29724514 F41.1 stable on effexor XR 75mg daily. Acid reflux 460164716 K2 1.9 start PPI therapy while waiting on insurance that has denied the EGD once Long-term drug therapy 039521603 Z79.899 Epigastric pain 55628921 R10.13 still trying to get approval for EGD> was denied under acid reflux code. Health Concerns Section Related Observation LastModified by Organization Detai ls LastModified Time None Recorded Concern Status LastModified by Organization Details LastModified Time None Recorded Advance Directives Directive None Recorded Payers Encounter Date Sequence Insurance Name Policy Number Policy [employer] Covered Member ID Penn Member ID Guarantor Name 03/30/2023 1 [employer] - OPEN ACCESS [id number] Joan Hargrove [id number] SOFelecia Gao [facility] 05/11/2023 1 [employer] - OPEN ACCESS [id number] Joan Hargrove [id number] SO Joan Gao [facility] Notes Date Note Type Note Provider Name and Address Organization Details Recorded Time 021 text/ht ml Anxiety, Generalized DisorderReported bypatient.Associated Symptoms:no difficulty concentrating; no difficulty controlling worry; no difficulty swallowing; no anxiety; no excessive sweating; no hot flashes; no palpitations; no shortness of breath; no nausea; no diarrhea; no fatigue; no irritability; no muscle tension; no muscle aches; no trembling; no twitching; no headaches; no restlessness; no sleep disturbancesDiabetesReported bypatient.Duration:chronic Control:improved since last visit; treated with diet only; hemoglobin A1C has been 7-8; hemoglobin A1C goal is less than 7 Compliance:compliant with follow-up visits; compliant with diet; compliant with home glucose monitoring Context:seeing eye doctor regularly; checking feet regularly Associated Symptoms:weight loss ( lbs)HyperlipidemiaReported bypatient.Control:usually well controlled; improving; at goal Compliance:compliant; compliant with diet; exercises Complications:no coronary artery disease; no peripheral artery disease; no cardiovascular diseaseHypertensionReported bypatient.Onset/Timing:better Self Care:not under emotional stress Associated Symptoms:no shortness of breath; no fatigue; no palpitations; no decline in exercise capacity; no snoring Not Available [facility] 07/12/2021 13:12:24 021 text/ht ml Generic HPI TemplateReported bypatient.Notes:Pt is here today with c/o deep ache in her shoulder/collar bone, and it radiates down her arm, not sure of any injury, says you can feel a bone spur sticking out of collar bone, has noticed for the last 3 days . Not Available [facility] 10/22/2021 13:51:08 023 text/ht ml Abdominal PainReported bypatient.Location:LUQ; epigastric Quality:pain;burning;sharp Severity:severe Duration:intermittent Onset/Timing:wax/wane Context:history of abdominal problems since having her son 19 years ago Other:denies possible gallito 2020 DESTINI Smith [address], [address], [facility] 04/16/2023 13:42:50 023 text/ht ml Anxiety/DepressionReported bypatient.Quality:doesnt matter time of day Severity:denies suicidal ideations; able to maintain relationships; does not interfere with activities of daily living Context:no major life stressors Associated Symptoms:denies homicidal ideations; no significant weight gain; no significant weight loss; no visual/auditory hallucinations; no delusions; no shortness of breathDiabetesReported bypatient.Control:usually well controlled; improved since last visit Compliance:compliant with medications; compliant with follow-up visits; compliant with diet; had eye doctor visit in last year Context:seeing eye doctor regularly; checking feet regularly Associated Symptoms:no weight gain; no weight loss; no dizziness; no sweats; no headaches; no confusion; no increased thirst; no increased appetite; no increased urination; no blurred vision; no numbness of feet; no calluses on feet; no coronary artery disease; no kidney disease; no peripheral vascular disease; no diabetic retinopathy; no diabetic neuropathyHyperlipidemiaReported bypatient.Control:usually well controlled; improving; at goal Compliance:compliant; compliant with diet; exercises Complications:no coronary artery disease; no peripheral artery disease; no cardiovascular diseaseHypertensionReported bypatient.Onset/Timing:better Associated Symptoms:no shortness of breath; no fatigue; no palpitations; no decline in exercise capacity; no snoring wellnessno complaints DESTINI Smith [address] [place] [address], [place], [address], [place] [facility] 05/18/2023 13:28:00 OBGyn Episode No OBEpisode recorded.
--- OUTSIDE RECORDS SUMMARY | 2025-01-14 01:03 | XMS_ITS | Clinical Summary ---
Author Organization [facility] [address] Address [address] [place] [address] Care Team Providers Care Loft Worker Head Name Role Phone Nettie Bueno Primary Care Pr ovider Allergies No known active allergies Medications venlafaxine (EFFEXOR) 75 mg tablet 1 tablet (75 mg total) Takes half a pill every day. Active multivitamin capsule Take 1 capsule by mouth daily Active ibuprofen (ADVIL,MOTRIN) 200 mg tab/cap Take 1 tablet/capsu le (200 mg total) by mouth every 6 (six) hours as needed for pain Active esomeprazole DR (NexIUM) 20 mg capsule Take 1 tablet by mouth daily 07/11/2019 Active Xigduo XR 5-1,000 mg tablet, IR & ER, biphasic 24hr TAKE 1 TABLET BY MOUTH EVERY DAY AT DINNER 02/20/2024 Active metFORMIN (GLUCOPHAGE) 500 mg tablet Take 1 tablet (500 mg total) by mouth 01/04/2024 Active nitrofurantoin monohydrate (MACROBID) 100 mg capsule Take 1 capsule (100 mg total) by mouth every 12 (twelve) hours 04/02/2024 Active norethindrone (AYGESTIN) 5 mg tablet Take 1 tablet (5 mg total) by mouth daily 12/22/2023 Active atorvastatin (LIPITOR) 80 mg tablet Take 1 tablet (80 mg total) by mouth daily 03/27/2024 Active losartan (COZAAR) 100 mg tablet Take 1 tablet (100 mg total) by mouth daily 01/31/2024 Active tacrolimus (PROTOPIC) 0.1 % ointment Active meloxicam (MOBIC) 7.5 mg tablet Take 1 tablet (7.5 mg total) by mouth daily 30 tablet 04/19/2024 Active Active Problems Problem Noted Date Diagnosed Date Cardiovascular stress test abnormal 07/27/2023 Epigastric pain 05/11/2023 Atypical chest pain 03/30/2023 Left upper quadrant pain 03/30/2023 Diabetes mellitus, type II 09/23/2022 Benign essential hypertension 07/10/2019 Generalized anxiety disorder 07/10/2019 Hyperlipidemia 07/10/2019 Immunizations Immunization Administration Dates Next Due Influenza, Quadrivalent, Split, Intramuscular Influenza, Unspecified 08/05/2021 Surgical History Surgery Date Site/Laterality Comments SECTION Medical History Medical History Date Comments Benign essential hypertension 07/10/2019 Generalized anxiety disorder 07/10/2019 Hyperlipidemia 07/10/2019 Diabetes mellitus, type II (HCC) 09/23/2022 Family History Medical History Relation Name Comments Arthritis Other Associated with bone spurs Cancer Other Diabetes Other Associated with Chemo Hyperlipidemia Other Hypertension Other Relation Name Status Comments Other Social History Tobacco Use Types Packs/Day Years Used Date Smoking Tobacco: Former Cigarettes Tobacco Cessation:Counseling Given: Not Answered Personal Safety Answer Date Recorded Getting School Help Needed Not on file 01/01 Comments Unknown Sex and Gender Information Value Date Recorded Sex Assigned at Not on file Legal Sex Female 11:26 AM EDUCATIONAL TECHNOLOGY COORDINATOR Gender Identity Not on file Sexual Orientation Not on file Obstetrics History Last Filed Vital Signs Vital Sign Reading Time Taken Comments Blood Pressure 131/87 04/19/2024 11:45 AM CDT Pulse 87 04/19/2024 11:45 AM CDT Temperature 37.3 C (99.1 F) 04/10/2024 8:13 AM CDT Respiratory Rate 18 04/10/2024 8:13 AM CDT Oxygen Saturation 97% 04/10/2024 8:13 AM CDT Inhaled Oxygen Concentration - - Weight 84.8 kg (187 lb) 04/19/2024 11:45 AM CDT Height 167.6 cm (5' 6 ) 04/19/2024 11:45 AM CDT Body Mass Index 30.18 04/19/2024 11:45 AM CDT Plan of Treatment Health Maintenance Due Date Last Done Comments Albumin Creatinine Ratio, Urine 1971 Cervical Cancer Screening 1971 Colon Cancer Screening-Colonoscopy 1971 Depression Screening 1971 Hemoglobin A1C 1971 Hepatitis C Screening 1971 Dilated Eye Exam 1971 Foot Exam 1971 DTaP/Tdap/Td Vaccine (1 - Tdap) 1982 Hepatitis B Screening 1989 Regular Well Visit/Exam 18-64 1989 Pneumococcal vaccine <65 (1 of 2 - PCV) 1990 Zoster Vaccine (1 of 2) 2021 eGFR 12/26/2023 12/25/2022, 09/23/2022 Covid-19 Vaccine (2023- season) 2024 10/01/2021, 01/27/2021, 01/04/2021 Influenza Vaccine (#1) 2024 08/05/2021, 2019 Lipid Panel 07/27/2024 07/27/2023 Breast Cancer Screening-Mammogram 01/26/2025 024, 01/27/2024 Procedures Procedure Name Priority Date/Time Associated Diagnosis Comments POCT LIPID PANEL Routine 07/27/2023 11:4 7 AM CDT Lipid screening EGFR STAT 12/25/2022 2:44 PM EDUCATIONAL TECHNOLOGY COORDINATOR from Last 3 Months or Most Recently Relevant to Health Maintenance Results * POCT lipid panel (07/27/2023 11:47 AM CDT) Cholesterol, POC 312 mg/dL HDL, POC 58 mg/dL Triglycerides, POC 142 mg/dL LDL Cholesterol POC 226 mg/dL Chol/HDL Ratio, POC 5.4 Non-HDL Cholesterol, POC 254 mg/dL Cholesterol Total, POC 312 mg/dL Capillary blood 07/27/2023 1 1:47 AM CDT us Jb Morales MD POINT OF CARE TEST ORDER EUSEBIO Final Result * eGFR (12/25/2022 2:44 PM EDUCATIONAL TECHNOLOGY COORDINATOR) eGFR >90 90 - 130 mL/min/1. 73 m2 [facility] Comment: Interpretive Data Reference Interval Normal >/= 90 mL/min/1.73m2 Mildly decreased* 60 - 89 mL/min/1.73m2 Mildly to moderately decreased 45 - 59 mL/min/1.73m2 Moderately to severely decreased 30 - 44 mL/min/1.73m2 Severely decreased 15 - 29 mL/min/1.73m2 Kidney Failure < 15 mL/min/1.73m2 *Relative to young adult level Estimated glomerular filtration rate is determined by the 2020 CKD-EPI equation recommended by the National Kidney Foundation (A Unifying Approach to GFR Estimation: Recommendations of the NKF-ASK Task Force on Reassessing the Inclusion of Race in Diagnosing Kidney Disease, JASN 2020). The CKD-EPI equation should not be used for patients with unstable renal function and has not been validated in children and those over 70. Current interpretive data was last reviewed 2021. Blood 12/25/2022 2:44 PM EDUCATIONAL TECHNOLOGY COORDINATOR 12/25/2022 3:07 PM EDUCATIONAL TECHNOLOGY COORDINATOR us Sujatha Rodriguez MD LAB BLOOD ORDERABLES Final Result [facility] Department [place] [address] from Last 3 Months or Most Recently Relevant to Health Maintenance Insurance [facility] [id number] [facility] [id number] [facility] [id number] Care Teams Loft Worker Head Relationship Specialty Start Date End Date Nettie Bueno PA PCP - General Physician Entry Tech 10/05/21
--- OUTSIDE RECORDS SUMMARY | 2025-01-14 01:03 | XMS_ITS | Continuity of Care Document ---
Author Organization [facility] Address [address] [address] [place] [address] Phone Care Team Providers Care Commercial Painter Name Role Phone Albaro Levine III, MD Unavailable Unavailable Allergies, Adverse Reactions, Alerts Substance Reaction Status Criticality No Known Allergies Active No Inform ation Medications Medication Instructions Dosage Effective Dates (start - stop) Status Comments atenolol 25 mg tablet TAKE 1 TABLET BY ORAL ROUTE EVERY DAY 25 MG - Active losartan 50 mg tablet take 1 tablet by oral route every day 50 MG - Active atorvastatin 10 mg tablet take 1 tablet by oral route every evening 10 MG - Active NEXIUM (unknown strength) take 1 capsule by oral route every day at least 1 hour before a meal swallowing whole. Do not crush or chew granules. As needed. Not Available - Active EFFEXOR XR (unknown strength) take 1 capsule by oral route every day with food Not Available - Active atenolol 25 mg tablet take 1 tablet by oral route every day 25 MG - No Longer Active Procedures Procedure Date Echo Doppler And Color Flow Interest From Insurance Co SPECT Complete Multiple Studies 015 Technetium Tc 99m Sestamibi/do 15 Exercise Or Drug Stress Test Comple Interest From Insurance Co Office Consult High Complexity 15 Interest From Insurance Co Advance Directives Directive Yes / No Effective Date File Name No Information Encounters Encounter Description Practice Location Reason(s) For Visit Diagnoses Date Provider Providers Copied on Encounter [facility], [address] [address], [place], [id number], [place] tel:[phone] [facility] No Information 7 Baucum III Albaro. [address], [place], [place], [id number] , [place]. tel: [phone] [facility], [address] [address], [place], [place], [id number], [place] tel:[phone] [facility] No Information 6 Baucum III Albaro. [address], [place], [place], [id number] , [place]. tel: [phone] [facility], [address] [address], [place], [place], [id number], [place] tel:[phone] [place] [address] No Information 5 Baucum III Albaro. [address], [place], [place], [id number] , [place]. tel: [phone] [facility], [address] [address], [place], [place], [id number], [place] tel:[phone] [facility] No Information 5 Baucum III Albaro. [address], [place], [place], [id number] , [place]. tel: [phone] Referring Provider: Albaro Baucum III, [address], [place], [address] . tel:[phone] [facility], [address] [address], [place], [place], [id number], [place] tel:[phone] [facility] No Information 5 Telles Brandan. [address], [place], [place], [id number] , [place]. tel: [phone] Referring Provider: Albaro Baucum III, [address], [place], [address] . tel:[phone] Office Consult High Complexity [facility], [address] [address], [place], [place], [id number], [place] tel:[phone] [facility] No Information 5 Baucum III Albaro. [address], [place], [id number] , [place]. tel: [phone] Referring Provider: Aravind Hand MD, [address], [place], [address]. tel:[phone] Family History Family Member Type Diagnosis Age At Onset Father Problem (finding) Cardiomyopathy 55 Payers Payer name Insurance type Covered democrat ID Authoriza titerrance(s) Edward [id number] Social History Type Description Quantity Date Captured [...]
--- OUTSIDE RECORDS SUMMARY | 2025-01-14 01:03 | XMS_ITS | Data Portability ---
Author Organization [facility] RAULDionte Yolanda Address [address] [facility] [place] [address] Care Team Providers Care Instrumental Music Teacher Name Role Phone DAYO ANDERSON Primary Care Provider Unavailab le Assessment Encounter Date Assessment Date Assessment LastModified by Organization Details LastModified Time 01/24/2024 01/24/2024 Mammogram is due. she has one scheduled. Colonoscopy is due she thinks. Not available 01/24/2024 16:33:51 11/28/2024 11/28/2024 April 23 at [place] colonoscopy. all clear. Not available 11/28/2024 13:40:12 Plan of Treatment Reminders Order Date Submit Date Provider Last Modified By Organization Details Last Modified Time Details Appointments None recorded. Lab TSH + free T4, serum 2024 025 [facility], [address], [place], [address], 5 12:18:42 CBC w/ auto diff 2024 025 [facility], [address], [place], [address], 5 12:18:43 CMP, serum or plasma 2024 025 [facility], [address], [place], [address], 5 12:18:43 lipase, serum or plasma 2024 025 [facility], [address], [place], [address], 5 12:18:43 amylase, serum or plasma 2024 025 [facility], [address], [place], [address], 5 12:18:43 lipid panel, serum 2024 025 [facility], [address], [place], [address], 5 12:18:43 HbA1c (hemoglobin A1c), blood 2024 025 [facility], [address], [place], [address], 5 12:18:43 rapid strep group A, throat 2023 024 In-Office Order, Internal Use Only DO Not Attach Compendium DO Not Attach Compendium, Do Not Delete/merge, [id number] 4 14:57:41 influenza virus A + B + SARS-CoV-2 (COVID19) Ag panel, rapid IA, upper respiratory specimen 2023 024 In-Office Order, Internal Use Only DO Not Attach Compendium DO Not Attach Compendium, Do Not Delete/merge, [id number] 4 14:57:40 lh + FSH, serum 2023 024 [facility], [address], [place], [address], 4 14:32:54 estradiol, serum 2023 024 [facility], [address], [place], [address], 4 14:32:54 progesteron e, serum 2023 024 [facility], [address], [place], [address], 4 14:32:54 testosteron e, total, serum 2023 024 [facility], [address], [place], [address], 4 14:32:54 dhea-sulfat e, serum 2023 024 [facility], [address], [place], [address], 4 14:32:54 CMP, serum or plasma 2023 024 [email or web address] 0 [facility], [address], [place], [address], 4 13:09:24 CBC w/ auto diff 2023 024 [email or web address] 0 [facility], [address], [place], [address], 4 13:09:25 TSH + free T4, serum 2023 024 [facility], [address], [place], [address], 4 11:31:12 lipid panel, serum 2023 024 [email or web address] 0 [facility], [address], [place], [address], 4 13:09:24 HbA1c (hemoglobin A1c), blood 2023 024 [email or web address] 0 [facility], [address], [place], [address], 4 13:09:24 Referral None recorded. Procedures upper endoscopy procedure (EGD) (PROC) - approval letter faxed also [address] [facility], [address], [address], [place], [address], 5 16:24:18 colonoscopy screening (PROC) 2023 024 [facility], [address], [address], [place], [address], 5 13:48:29 Surgeries None recorded. Imaging CT, abdomen + pelvis, w/ contrast 2024 025 [facility], [address], [place], [address], 5 12:26:52 Medication Orders glimepiride 1 mg tablet 2024 025 [id number], [address], [place], [id number], 5 09:42:35 cefdinir 300 mg capsule 2023 025 [facility][id number], [address], [place], [id number], 5 13:47:03 losartan 100 mg tablet 2023 024 [facility][id number], [address], [place], [id number], 4 09:28:47 Patient TargetsNo targets recorded. Patient Instructions Encounter Date Encounter Id Patient Instructions Last Modified By Organization Details Last Modified Time 11/28/2024 [id number] A healthy lifestyle: care instructions Not available 11/28/2024 11:26:25 A healthy lifestyle: care instructions Not available 11/28/2024 13:44:19 Reason for Referral None Reported. Results Created Date Observation Date Name Description Value Unit Range Abnormal Flag Note LastModifiedBy Organization Detail LastModifiedTime 08/15/20 24 08/15/2024 influ vidal virus A + B + SARS- CoV-2 (COVI D19) Ag panel , rapid IA, upper respi rator y speci men Flu A negati ve Not Available In-Office Order Internal Use Only DO Not Attach Compendium DO Not Attach Compendium, Do Not Delete/merge, [id number] 08/15/2024 14:57:31 08/15/20 24 08/15/2024 influ vidal virus A + B + SARS- CoV-2 (COVI D19) Ag panel , rapid IA, upper respi rator y speci men Flu B negati ve Not Available In-Office Order Internal Use Only DO Not Attach Compendium DO Not Attach Compendium, Do Not Delete/merge, [id number] 08/15/2024 14:57:31 08/15/20 24 08/15/2024 influ vidal virus A + B + SARS- CoV-2 (COVI D19) Ag panel , rapid IA, upper respi rator y speci men Rapid SARS CoV 2 Ag, QL IA, respiratory specimen negati ve Not Available In-Office Order Internal Use Only DO Not Attach Compendium DO Not Attach Compendium, Do Not Delete/merge, [id number] 08/15/2024 14:57:31 08/15/20 24 08/15/2024 rapid strep group A, throa t Strep negati ve Not Available In-Office Order Internal Use Only DO Not Attach Compendium DO Not Attach Compendium, Do Not Delete/merge, [id number] 08/15/2024 14:57:09 12/03/1912/03/2024 CT, abdom en + pelvi s, w/ contr ast No observ ation record ed. [facility] [address], [place], [address], 12/05/2024 11:41:03 Result Notes None recorded. Problems Name Problem SNOMED Code Status Onset Date Resolution Date Notes Provider Name and Address Organization Details Recorded Time Gastroesophage al reflux disease without esophagitis 082646108 Active 2024 DESTINI Smith Attn: Paulettebritney dick,[address] [facility], [place], [address], [place] [facility] 13:34:18 Uncontrolled type 2 diabetes mellitus 608088147 Active 2024 DESTINI Smith Attn: Paulettebritney g,[address] [facility], [place], [address], [place] [facility] 13:34:19 Upper abdominal pain 45188395 Active 2024 DESTINI Smith Attn: Paulettebritney dick,[address] [place], [address], [place] [facility] 13:34:20 Hyperlipidemia 60649605 Active 2024 DESTINI Smtih Attn: Paulettebritney dick,[address] [facility], [place], [address], [place] [facility] 5 13:39:37 Body mass index 30+ - obesity 365728744 Active 2024 DESTINI Smith Attn: Paulettebritney dick,[address] [facility], [place], [address], [place] [facility] 13:39:47 Obesity 823503582 Active 2024 DESTINI Smith Attn: Paulettebritney g,[address] [facility], [place], [address], [place] [facility] 5 13:39:48 Problem Notes None recorded. Procedures Surgical History Date Name Laterality Status Provider Name and Address Organization Details Recorded Time excision of bilateral fallopian tubes and ovaries completed MANUELA Lane - [facility] 01/24/2024 17:04:[address] - [facility] 01/24/2024 17:04:[address] - [facility] 08/15/2024 14:26:30 Imaging Results Imaging Date Name Status LastModified by Organiz ation Details LastModified Time 12/03/2024 CT, abdomen + pelvis, w/ contrast completed [facility] [address], [place], [address], 12/05/2024 11:41:03 Procedure Notes None recorded. Medical Equipment None Reported. Allergies Allergen ID Allergen Name Allergen Category Reaction Reaction Severity Criticality Documentation Date Start Date Code Code System Note Provider Name and Address Organization Details Recorded Time 264765 metformin medicatio n abdominal pain severe high 01/24/2024 3588 RxNorm Not Available Not Available Not Available Medications Name Sig Start Date Stop Date Status Note LastModified by Organization Details LastModified Time losartan 50 mg tablet Take 1 tablet every day by oral route. 01/30 completed Not Available Not Available Not Available atorvastati n 40 mg tablet Take 1 tablet(s) every day by oral route. 03/27 completed Not Available Not Available Not Available atorvastati n 80 mg tablet TAKE 1 TABLET BY MOUTH EVERY DAY active Not Available Not Available No t Available venlafaxine 75 mg tablet one tab po daily active Not Available Not Available No t Available glyburide 2.5 mg tablet Take 1 tab p.o. twice daily 2024 active Not Available Not Available Not Avai lable glimepiride 1 mg tablet Take 1 tablet twice a day by oral route with meal(s). 12/03 completed Not Available Not Available Not Available meloxicam 7.5 mg tablet 08/15 completed Not Available Not Available Not Available cefdinir 300 mg capsule TAKE 1 CAPSULE BY MOUTH EVERY 12 HOURS 10/26 completed Not Available Not Available Not Available losartan 100 mg tablet TAKE 1 TABLET BY MOUTH EVERY DAY FOR BLOOD PRESSURE active Not Available Not Available No t Available nitrofurant oin monohydrate /macrocryst als 100 mg capsule TAKE 1 CAPSULE BY MOUTH EVERY 12 HOURS 11/28 completed Not Available Not Available Not Available Nexium active OTC Not Available Not Availa ble Not Available venlafaxine ER 75 mg tablet,exte nded release 24 hr Take 1 tablet every day by oral route. 08/13 completed Not Available Not Available Not Available Xigduo XR 5 mg-1,000 mg tablet,exte nded release TAKE 1 TABLET BY MOUTH EVERY DAY AT DINNER 03/05 completed Not Available Not Available Not Available Rybelsus 3 mg tablet Take 1 tablet every day by oral route. 2024 active Not Available Not Available Not Avai lable Vitals Date Recorded Body height Respiratory rate Body mass index (BMI) Body weight Oxygen saturation Oxygen saturation in Arterial blood by Pulse oximetry Heart rate Systolic blood pressure Diastolic blood pressure Provider Name and Address Organization Details Last Updated DateTime 4 165.74 cm 18 /min 31.9 kg/m2 25464.3 3 g 99 % 99 % 85 /min 132 mm[Hg] 80 mm[Hg] Saad Gambino MA [facility] 4 16:07:01 Date Recorded Systolic blood pressure Diastolic blood pressure Systolic blood pressure Diastolic blood pressure Provider Name and Address Organization Details Last Updated DateTime 01/24/2024 158 mm[Hg] 90 mm[Hg] 160 mm[Hg] 90 mm[Hg] DESTINI Smith Attn: Accounting ,[address] [place], [address] , [facility] 4 16:32:57 Date Recorded Body height Body mass index (BMI) Body weight Respiratory rate Oxygen saturation Oxygen saturation in Arterial blood by Pulse oximetry Heart rate Systolic blood pressure Diastolic blood pressure Provider Name and Address Organization Details Last Updated DateTime 4 165.74 cm 31.9 kg/m2 33969.3 3 g 18 /min 99 % 99 % 76 /min 140 mm[Hg] 82 mm[Hg] Saad Gambino MA [facility] 4 14:27:49 Date Recorded Body temperature Systolic blood pressure Diastolic blood pressure Provider Name and Address Organization Details Last Updated DateTime 08/15/2024 98.7 [degF] 130 mm[Hg] 90 mm[Hg] DESTINI Smith Attn: Accounting, [address] [place], [address], [facility] 08/15/2024 14:50:12 Date Recorded Body height Body mass index (BMI) Body weight Oxygen saturation Oxygen saturation in Arterial blood by Pulse oximetry Heart rate Systolic blood pressure Diastolic blood pressure Provider Name and Address Organization Details Last Updated DateTime 165.74 cm 30.2 kg/m2 40306.3 3 g 97 % 97 % 93 /min 140 mm[Hg] 80 mm[Hg] Saad Gambino MA [facility] 11:11:15 Date Recorded Respiratory rate Systolic blood pressure Diastolic blood pressure Provider Name and Address Organization Details Last Updated DateTime 11/28/2024 18 /min 130 mm[Hg] 90 mm[Hg] DESTINI Smith Attn: Accounting, [address] [place], [address], [facility] 11/28/2024 11:28:43 Social History Question Answer Notes LastModified by Organizat ion Details LastModified Time Tobacco Smoking Status Former Smoker been 24 years Saad Gambino MA null, [facility] 01/24/2024 16:02:48 Do You Have An Advance Directive? No Information not available 01/24/2024 What Is Your Level Of Alcohol Consumption? Occasional Very Rare Information not available 01/24/2024 Are You Blind Or Do You Have Difficulty Seeing? No Information not available 01/24/2024 What Is Your Level Of Caffeine Consumption? Occasional 1 Cup Of Coffee Information not available 01/24/2024 In The 14 Days Before Symptom Onset, Have You Had Close Contact With A Laboratory-confir med COVID-19 While That Case Was Ill? No Information not available 01/24/2024 In The 14 Days Before Symptom Onset, Have You Had Close Contact With A Person Who Is Under Investigation For COVID-19 While That Person Was Ill? No Information not available 01/24/2024 Have You Been To An Area Known To Be High Risk For COVID-19? No Information not available 01/24/2024 Are You Deaf Or Do You Have Serious Difficulty Hearing? No Information not available 01/24/2024 What Type Of Diet Are You Following? REGULAR Information not available 01/24/2024 Are There Any Guns Present In Your Home? No Information not available 01/24/2024 What Was The Date Of Your Most Recent Tobacco Screening? 11/28/2024 Information not available 11/28/2024 What Is Your Current Pack Years? 10-19packyears Information not available 01/24/2024 Do You Use Your Seat Belt Or Car Seat Routinely? Yes Information not available 01/24/2024 Do You Have Smoke And Carbon Monoxide Detectors In Your Home? Yes Information not available 01/24/2024 At What Age Did You Start Smoking Tobacco? 18 Information not available 01/24/2024 How Much Tobacco Do You Smoke? No Information not available 08/15/2024 Do You Feel Stressed (tense, Restless, Nervous, Or Anxious, Or Unable To Sleep At Night)? [id number] Information not available 01/24/2024 Do You Use Any Illicit Or Recreational Drugs? No Information not available 01/24/2024 Do You Use Sunscreen Routinely? Yes Information not available 01/24/2024 Has Tobacco Cessation Counseling Been Provided? No Information not available 01/24/2024 Do You Or Have You Ever Used Any Other Forms Of Tobacco Or Nicotine? No Information not available 01/24/2024 Sex: Female Functional Status Question Answer Note LastModified by Organizat ion Details LastModified Time Are you able to care for yourself? Yes Information not available 01/24/2024 What is your exercise level? Occasional Information not available 01/24/2024 Mental Status None recorded. Family History Relationship Description Onset Age of this Age Resolved Age Notes LastModified by Organization Details LastModified Time Father Asthma tcarterma Not available 01/24/2024 17:05:11 Father Malignant tumor of colon tcarterma Not available 2023 17:05:24 Father Diabetes mellitus tcarterma Not available 2023 17:05:30 Brother Asthma tcarterma Not available 01/24/2024 17:05:11 Mother Hypercholest erolemia tcarterma Not available 2023 17:05:43 Sister Hypercholest erolemia tcarterma Not available 2023 17:05:43 Sister Migraine tcarterma Not availabl e 01/24/2024 17:05:53 Medical History Condition Response Coronary Artery Disease N Other N Atrial Fibrillation N High Blood Pressure Y Thyroid Problems N Kidney or Bladder Problems N GI Problems N Depression N COPD N Blood Clots N Skin Problems N Anemia N Heart Attack ([place]) N Anxiety Disorder Y Diabetes N Muscle, Joint, or Bone Problems N Seizures/Epilepsy N Acid Reflux (GERD) Y Cancer N Stroke N Asthma N Allergies N High Cholesterol Y Hepatitis N Liver Disease N Headaches Y Osteoporosis N Heart Failure N Gynecological History Statement/Question Response Menses Monthly N Current Control Method Tubal Ligat ion Frequency of Cycle (Q days) 14 Obstetrics History GPAL:G 2 P 0 0 0 2 Type Value Multiple Births 0 Full Term 0 Induced 0 Spontaneous 0 Living 2 Total 2 Immunizations Vaccine Type Date Status Note Provider Nam e and Address Organization Details Recorded Time COVID-19, mRNA, LNP-S, PF, 30 mcg/0.3 mL dose 01/04/[address], [place] [facility] 08/15/2024 14:18:05 COVID-19, mRNA, LNP-S, PF, 30 mcg/0.3 mL dose 01/27/2021 completed Saad Gambino [place], [place] [facility] 08/15/2024 14:18:05 COVID-19, mRNA, LNP-S, PF, 30 mcg/0.3 mL dose 10/01/2021 completed Saad Gambino [place], [place] [facility] 08/15/2024 14:18:05 Past Encounters Encounter ID Performer Location Encounter Start Date Encounter Closed Date Diagnosis/Indication Diagnosis SNOMED-CT Code Diagnosis ICD10 Code Diagnosis Note [id number] DESTINI Smith [facility] [place] [address] [place] [address] 01/24/2024 15:14:32 01/24/2024 16:35:43 Well controlled type 2 diabetes mellitus 194654757 E11.9 due for updated A1c lab. she is currently diet controllin g but realizes she will likely need medication assistance now. she cannot tolerate metformin at all with GI distress. Hyperlipidemia 13737874 E78.5 on atorvastat in 40mg daily. due for fasting lipid panel. Benign ess ential hypertension 0972359 I10 BP is elevated today. she is taking losartan 50mg daily. Perimenopausal state 592 [id number] 11331 Z78.0 check full hormone panel of labs to evaluate for menopause Long-term drug therapy 447230406 Z79.899 routine cmp and cbc and TFT panels due Family his tory of cancer of colon 041087861 Z80.0 refer for colonoscop y that is due for fam hx of colon cancer in her father. [id number] DESTINI Smith ON LICENSE OF [facility] [address] [place] [address] 08/15/2024 14:14:51 08/15/2024 15:13:20 Acute left otitis media 195024841 H66.92 Start cefdinir 300 mg twice daily for 7 days. Acute sinusitis 23954802 J01.90 Treatment as above with cefdinir course Sore throat 344110303 J0 2.9 Strep testing is negative Congestion of nasal sinus 76101182 R09.81 COVID and influenza testing is negative [id number] DESTINI Smith ON LICENSE OF [facility] [address] [place] [address] 11/28/2024 10:53:27 11/28/2024 11:57:25 Body mass index 30+ - obesity 484789862 Z68.30 BMI is 30.2 Obesity 167905047 E66.9 discussed healthy diet, exercise, controllin g carbohydra srinath and added sugars in the diet Left lower quadrant pain 449868016 R10.[address] scan abdomen and pelvis with contrast to rule out any diverticul ar disease or adnexal etiology for her left-sided abdominal pain. Epigastric pain 60542331 R10.13 Patient does continue to have this left upper quadrant and epigastric discomfort . We will also refer her for an upper endoscopy with a history of GERD on PPI therapy Gastroesop hageal reflux disease without esophagitis 270743290 K21.9 Continue Nexium over-the-c ounter daily Upper abdominal pain 831 43332 R10.10 Check CBC, CMP and amylase and lipase Uncontroll ed type 2 diabetes mellitus 304707117 E11.65 Patient is due for repeat A1c hemoglobin testing and was unable to tolerate any metformin therapy or combinatio n metformin therapy. At this time we will start glimepirid e 1 mg twice daily to have some medication on board. This will be the introducto ry starting point to get some new medication going and we also discussed that she may need to have insulin therapy started. She is trying to work with lowering her carbs and sugars in the diet but does not feel entirely successful all the time. Long-term drug therapy 684006427 Z79.899 Hyperlipidemia 60341687 E78.5 Patient is taking atorvastat in 80 mg daily and is due for updated fasting lipid panel Thyroid di katyder screening 709616822 Z13.29 Routine thyroid function testing is ordered as well Health Concerns Section Related Observation LastModified by Organization Detai ls LastModified Time None Recorded Concern Status LastModified by Organization Details LastModified Time None Recorded Advance Directives Directive N: Payers Encounter Date Sequence Insurance Name Policy Number Policy Penn Covered Member ID Penn Member ID Guarantor Name 01/24/2024 1 [employer] - OPEN ACCESS [id number] Joan [employer] [id number] [facility] 08/15/2024 1 [employer] - OPEN ACCESS [id number] Joan [employer] [id number] [facility] 11/28/2024 1 [employer] - OPEN ACCESS [id number] Joan [employer] [id number] [facility] Notes Date Note Type Note Provider Name and Address Organization Details Recorded Time 01/24/2024 text/html DiabetesReported bypatient.Notes:underl patty diabetes. she has been trying to diet and exercise control. due for labs.HyperlipidemiaRep orted bypatient.Notes:pt is taking atorvastatin 40mg daily. due for labs.HypertensionRepor richard bypatient.Notes:pt is taking losartan 50mg daily. BP Is elevated today. she has been taking meds as directed DESTINI Smith Attn: Accounting,[address] [place], [address], [facility] 01/31/2024 09:28:57 08/15/2024 text/html Upper Respirator y SymptomsReported bypatient.Location:hea d; throat Quality:congested;hurt s to swallow Severity:mild Onset/Timing:sudden Context:no sick contacts; no foreign travel; non-smoker Modifying Factors:OTC medication Associated Symptoms:sore throat; Ear pain and sinus painNotes:States that she has a sore throat with some fluid drainage into her throat/chest cavity, as well as fluid in both ears, no coughing does also have some nasal congestion pt. has taken advil and flonase@ home covid neg DESTINI Smith Attn: Accounting,[address] [place], [address], [facility] 08/26/2024 23:01:54 11/28/2024 text/html Abdominal PainRe ported bypatient.Location:LLQ ; LUQ; epigastric Quality:pain;dull;full ness Severity:moderate Duration:intermittent Onset/Timing:wax/wane Modifying Factors:nothing gives relief Associated Symptoms:no fever; no chills; no blood in the urine; no shortness of breath;heartburn Other:denies possible pregnancyNotes:Pt states she has had ongoing abdominal pain and feels like something is under her rib with pain of 3/10 in severity. Pt also had a really bad pain of 7/10 in severity and felt like something popped. Pt states she has unexplained weight loss since September 2024. She states after all she did normal she would've gained weight and now she is losing weight every few days and her appetite is poor which is concerning to her. DESTINI Smith Attn: Accounting,[address] [place], [address], [facility] 11/28/2024 13:49:38 OBGyn Episode No OBEpisode recorded.
--- OUTSIDE RECORDS SUMMARY | 2025-01-14 01:03 | XMS_ITS | Referral Summary ---
Author Organization [facility] [place] [address] Address [address] [place] [address] Care Team Providers Care Laboratory Technical Specialist Name Role Phone Nettie Bueno Primary Care [...] Influenza, Quadrivalent, Split, Intramuscular Influenza, Unspecified 08/05/2021 Social History Tobacco Use Types Packs/Day Years Used Date Smoking Tobacco: Former Cigarettes Tobacco Cessation:Counseling Given: Not Answered Personal Safety Answer Date Recorded Getting School Help Needed Not on file 01/01 Comments Unknown Sex and Gender Information Value Date Recorded Sex Assigned at Not on file Legal Sex Female 11:26 AM CONSULTING SERVICES MANAGER Gender Identity Not on file Sexual Orientation Not on file Last Filed Vital Signs Vital Sign Reading [...] 04/19/2024 11:45 AM CDT Plan of Treatment Not on file Procedures Procedure Name Priority Date/Time Associated Diagnosis Comments POCT LIPID PANEL Routine 07/27/2023 11:4 7 AM CDT Lipid screening EGFR STAT 12/25/2022 2:44 PM CONSULTING SERVICES MANAGER from Last 3 Months or Most Recently [...] Final Result * eGFR (12/25/2022 2:44 PM CONSULTING SERVICES MANAGER) eGFR >90 90 - 130 mL/min/1. 73 m2 [facility] Comment: Interpretive Data Reference Interval Normal >/= [...] last reviewed 2021. Blood 12/25/2022 2:44 PM CONSULTING SERVICES MANAGER 12/25/2022 3:07 PM CONSULTING SERVICES MANAGER us Sujatha Rodriguez MD LAB BLOOD ORDERABLES Final Result [facility] Department [place] [address] from Last 3 Months or Most Recently Relevant to Health Maintenance Insurance COUNT INCLUDES THE [facility] [id number] COUNT INCLUDES THE [facility] [id number] COUNT INCLUDES THE [facility] [id number] Care Teams Laboratory Technical Specialist Relationship Specialty Start Date End Date Nettie Bueno PA PCP - General Physician Cotton Candy Maker 10/05/21
--- OUTSIDE RECORDS SUMMARY | 2025-01-14 01:03 | XMS_ITS | Clinical Summary ---
Author Organization [facility] Address [address] [place] [address] Phone Care Team Providers Care Club Attendant Name Role Phone Unavailable Primary Care Provider Unavailabl e Allergies No known active allergies Medications venlafaxine (EFFEXOR) 75 mg tablet 75 mg. Active losartan (COZAAR) 50 mg tablet Take 50 mg by mouth daily. 08/30/2022 Active ibuprofen (MOTRIN) 200 mg tablet Take 200 mg by mouth. Active atorvastatin (LIPITOR) 40 mg tablet Take 40 mg by mouth daily. 06/05/2023 Active multivit-min/fe rrous fumarate (MULTI VITAMIN ORAL) Take 1 Capsule by mouth daily. Active esomeprazole magnesium (NEXIUM ORAL) Take by mouth. Active norethindrone acetate (AYGESTIN) 5 mg Tablet Take 1 Tablet (5 mg) by mouth daily. 30 Tablet 6 12/22/2023 Active metFORMIN (GLUCOPHAGE) 500 mg tablet Take 1 Tablet (500 mg) by mouth 2 times daily with meals. 200 Tablet 1 01/04/2024 Active Active Problems No known active problems Encounters Date Type Department Care Team Description 01/09/2025 External Device Data [facility] Provider, Abstract 01/01/2025 External Device Data [facility] Provider, Abstract 01/01/2025 External Device Data [facility] Provider, Abstract 12/29/2024 External Device Data [facility] Provider, Abstract 12/28/2024 External Device Data [facility] Provider, Abstract 12/25/2024 External Device Data [facility] Provider, Abstract 12/11/2024 External Device Data [facility] Provider, Abstract 11/27/2024 External Device Data [facility] Provider, Abstract 11/14/2024 External Device Data [facility] Provider, Abstract 11/13/2024 External Device Data [facility]CTION Provider, Abstract from Last 3 Months Family History Medical History Relation Name Comments Colon Cancer Father Noé Poole Matistatic, col on, lungs, liver, spine, ribs Uterine Cancer Paternal Grandmother Isi Poole It was 1940 s w e asune uteran ir ovarian Relation Name Status Comments Father Noé Poole Paternal Grandmother Isi Poole Social History Tobacco Use Types Packs/Day Years Used Date Smoking Tobacco: Former Cigarettes 0.5 5 Q uit: 04/23/2000 Tobacco Cessation:Counseling Given: Not Answered Alcohol Use Standard Drinks/Week Comments Yes 0 (1 standard drink = 0.6 oz pur e alcohol) Very little these days Comments No Sex and Gender Information Value Date Recorded Sex Assigned at Not on file Legal Sex Female 3:17 PM MORTGAGE LOAN PROCESSOR Gender Identity Not on file Sexual Orientation Not on file Last Filed Vital Signs Vital Sign Reading Time Taken Comments Blood Pressure 164/97 12/22/2023 1:40 PM MORTGAGE LOAN PROCESSOR Per Patient did take BP meds today Pulse - - Temperature - - Respiratory Rate - - Oxygen Saturation - - Inhaled Oxygen Concentration - - Weight 88.6 kg (195 lb 6.4 oz) 12/22/2023 1:40 PM MORTGAGE LOAN PROCESSOR Height 167.6 cm (5' 6 ) 12/22/2023 1:40 PM MORTGAGE LOAN PROCESSOR Body Mass Index 31.54 12/22/2023 1:40 PM MORTGAGE LOAN PROCESSOR Plan of Treatment Health Maintenance Due Date Last Done Comments DIABETES ANNUAL FOOT EXAM 1989 DIABETES ANNUAL RETINAL EXAM 1989 DIABETES HBA1C Q 6 MONTHS 1989 DIABETES MICROALBUMIN ANNUAL SCREEN 1989 LDL CHOLESTEROL ANNUAL 1989 DTAP/TDAP/TD VACCINES (1 - Tdap) 1990 HEPATITIS B VACCINES (1 of 3 - 19+ 3-dose series) 04/23 HPV/Cotest 2001 FIT-DNA Q 3 years 2016 FIT/FOBT Q 1 year 2016 Flex Sig/CT Colonography Q 5 years 2016 ZOSTER VACCINE (1 of 2) 2021 INFLUENZA VACCINE (#1) 2024 08/13/2020 BREAST CANCER SCREENING 01/26/2025 01/27/2024 CERVICAL CANCER SCREENING 12/21/2026 PAP SMEAR 12/21/2026 12/22/2023 PAP SMEAR 12/21/2026 12/22/2023 COLORECTAL SCREENING 12/21/2028 12/21/2018 Colorectal Cancer Screening 12/21/2028 Procedures Procedure Name Priority Date/Time Associated Diagnosis Comments MAMMO 3D EDWIN SCREEN BILAT W OR WO CAD Routine 01/27/2024 12:36 PM CDT Breast cancer screening by mammogram CERV/VAG CYTO AGE BASED SCREEN PAP Routine 12/22/2023 3:01 PM MORTGAGE LOAN PROCESSOR Well woman exam with routine gynecological exam Screening for cervical cancer from Last 3 Months or Most Recently Relevant to Health Maintenance Results * MAMMO 3D EDWIN SCREEN BILAT W OR WO CAD (01/27/2024 12:36 PM CDT) Anatomical Region Laterality Modality Breast Bilateral Mammography 01/27/2024 12:3 6 PM CDT Addenda Addendum by Rima Mcdowell MD on 02/06/2024 4:53 PM CDT ADDENDUM: The previous outside mammograms dated 08/10/2022 and 06/26/2021 were made available for comparison. The breast tissues are heterogeneously dense bilaterally which may lower the sensitivity of the mammography. No new mass, malignant calcification or architectural distortion is seen. CAD was used. IMPRESSION: No evidence of malignancy. RECOMMENDATIONS: Bilateral annual screening mammogram. OVERALL FINAL ASSESSMENT: BI-RADS CATEGORY 1: Negative Impressions 01/27/2024 3:26 PM CDT IMPRESSION: Prior mammograms are needed for comparison. An addendum will be issued once these are available for review. OVERALL FINAL ASSESSMENT: BI-RADS CATEGORY 0 - Incomplete: Needs prior mammograms for comparison. Narrative 01/27/2024 3:26 PM CDT BILATERAL FULL-FIELD DIGITAL SCREENING MAMMOGRAM WITH CAD WITH TOMOGRAPHY DATE: 01/27/2024 12:36 PM HISTORY: Routine screening. DICTATION LOCATION: [facility] TECHNIQUE: Full-field digital craniocaudal and mediolateral oblique projections of both breasts were obtained. Low-dose full-field digital breast tomosynthesis examination was performed with 2D and 3D acquisitions. Examination is read in conjunction with computer aided detection. COMPARISON: No prior studies are available for comparison. BREAST COMPOSITION: The breasts are heterogeneously dense, which may obscure small masses. FINDINGS: Prior mammograms are needed for comparison. us Arsenio Chew MD MAMMO ORDERABLES Edited Resul t - Final * CERV/VAG CYTO AGE BASED SCREEN PAP (12/22/2023 3:01 PM MORTGAGE LOAN PROCESSOR) COMMENT (PAP): [facility] [place] Comment: This order for age-based cervical cancer and STI screening follows ACOG guidelines(PB 168, 140, NIR969). See individual assays for performing site location. CLINICAL INFORMATION [facility] Comment:None given LAST MENSTRUAL PERIOD [email or web address] [place] Comment:NONE GIVEN PREV PAP: [email or web address] [place] Comment:NONE GIVEN PREV BX: [email or web address] [place] Comment:NONE GIVEN SOURCE [email or web address] [place] Comment:Endocervix ADEQUACY: [facility] [place] Comment: Satisfactory for evaluation. Endocervical/transformation zone component absent. Age and/or menstrual status not provided PAP INTERP [facility] [place] Comment: Cytology Results: Negative for intraepithelial lesion or malignancy. COMMENT (PAP TEST) [facility] Comment: This Pap test has been evaluated with computer assisted technology. INSULATION CUTTER AND FORMER: Lori Agustin Comment: KMS, CT(ASCP) CT Screening location: [place] [address] [place] [address] EXPLANATORY NOTE Que DiurnalJonathan Agustin Comment: EXPLANATORY NOTE: The Pap is a screening test for cervical cancer. It is not a diagnostic test and is subject to false negative and false positive results. It is most reliable when a satisfactory sample, regularly obtained, is submitted with relevant clinical findings and history, and when the Pap result is evaluated along with historic and current clinical information. HPV E6/E7 Not Detected Not Detected [facility] [place] Comment: Methodology: Membership Sales Manager-Mediated Amplification This assay detects E6/E7 viral messenger RNA (mRNA) from 14 high-risk HPV types (16,18,31,33,35,39,45,51,52,56,58,59,66,68). Cervical sources are required for HPV testing. If a vaginal source from a patient who has had a total hysterectomy with removal of cervix was submitted, please contact the testing laboratory for alternative testing options. For additional information, please refer to http://education.[employer]/faq/GKJ754e9 (This link if provided for information/ educational purposes only.) Test Performed at: [facility] [address] [place] [address] Kandy MELENDREZ Genital SWAB OF ENDOCERVIX / Unknown 12/22/2023 3:01 PM MORTGAGE LOAN PROCESSOR 12/23/2023 3:36 AM MORTGAGE LOAN PROCESSOR Arsenio Chew MD PATHOLOGY/CYTOLOGY ORDERABLES Final Result [facility] [phone] [facility] [address] [place] [address] from Last 3 Months or Most Recently Relevant to Health Maintenance Insurance [employer] [facility] [place]
[2025-01-14 11:38] VITALS: BP 133/86; PULSE 88; RESP 18; TEMP 36.1; O2SAT 100
[2025-01-14] MEDS: LACTATED RINGERS 1,000 ML 150 ML IV CONT (11:46)
--- NOTE | 2025-01-14 11:46 | WPDANESEPPF ---
Anes - Initial Pre Proc Eval Procedure: Operation Date: 01/14/25 12:45 Proposed Procedures p Esophagogastroduodenoscopy - Demetris Patrick MD Date/Time: 01/14/25 11:46 Surgeon: Demetris Patrick MD Pre Op Diagnosis: Epigastric pain Patient Data Age: 54 Gender: F Height: 1.68 m Weight: 83.2 kg Last Vital Signs Temp 97 F L 01/14/25 11:38 Pulse 88 01/14/25 11:38 Resp 18 01/14/25 11:38 BP 133/86 01/14/25 11:38 Pulse Ox 100 01/14/25 11:38 O2 Del Method Room Air 01/14/25 11:38 Allergies Allergy/AdvReac Type Severity Reaction Status Date / Time No Known Allergies Allergy Verified 01/14/25 11:35 Home Medications ?Medication ?Instructions ?Recorded ?Confirmed ?Type esomeprazole magnesium 20 mg 20 mg PO DAILY 07/08/20 01/14/25 History capsule,delayed release (Nexium 24HR) losartan 50 mg tablet 50 mg PO DAILY 07/08/20 01/14/25 History venlafaxine 75 mg tablet 32.5 mg PO DAILY 07/08/20 01/14/25 History atorvastatin 40 mg tablet 40 mg PO DAILY 04/10/24 01/14/25 History multivitamin 1 tablet PO DAILY 01/03/25 01/14/25 History vitamin B complex 1 cap PO DAILY 01/03/25 01/14/25 History Patient hx anesthesia problems: none Family hx anesthesia problems: none Results Review: All pre-operative results and documents have been reviewed as part of the pre-operative evaluation. [facility] Past Medical History Medical History Family history of colon cancer in father Breast asymmetry Perimenopause Screening mammogram, encounter for Abnormal Pap smear of cervix 2000 ascus Hypertension Arthritis Anemia High cholesterol Mild acid reflux Dizziness Asthma Anxiety and depression Surgical History Surgical History History of endometrial ablation (07/23/20) menometrorrhagia History of dilation and curettage (08/10/18) History of colposcopy with cervical biopsy (~2000) benign Delivery by section 12/25/03 primary c/s--breech @ 34 weeks H/O tubal ligation (08/10/18) Family History Family History Father Carcinoma of colon Mother Diabetes mellitus Arthritis Sibling Diabetes mellitus sister Grandparent Breast cancer paternal grandmother Tumor of ovary paternal grandmother Social History Social History Smoking packs per day: 0.5 Smoking cigarettes per day: 10.0 Years smoked: 4 Smoking pack-years: 2.00 Smoking status: Former smoker Tobacco type: cigarettes Second hand tobacco smoke exposure: No Alcohol intake: never Drinks per week: 1 Alcohol use details: per month Substance use: never Substance use type: does not use Last use: 04-23-2000 Living arrangements: with family Additional living arrangements comments: Occupation/Education: occupation 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 Gender identity (if verbalized by the patient): Female Sexual Orientation (if Verbalized by the Patient): Straight or Heterosexual Spiritual care concerns: No Anes - Eval Final PreProcedure Day of Procedure 01/14/25 11:46 Patient weight: overweight Lungs: normal air movement Airway: Mallampati scale class II Neurological: alert and oriented Last oral intake: >/= 8 hours ASA classification: II Emergent: no Anesthetic plan: proceed Anesthesia type and monitoring: general GIVS and standard monitoring Results Review: All pre-operative results and documents have been reviewed as part of the pre-operative evaluation. HTN, hyperlipidemia, pt reports stress test approx 2023 nml. Informed Consent: The patient's anesthetic plan and its attendant risks and benefits were discussed with the patient/family/POA. Questions were solicited and answers provided to the satisfaction of the patient/family/POA.
--- NOTE | 2025-01-14 12:17 | PM.HPGS ---
History of Present Illness History of Present Illness Consent: Risks, benefits, and alternatives have been discussed and questions answered. Patient agrees to proceed with procedure. Chief complaint: Epigastric pain Narrative: Joan Kauffman is a 54 year old female with intermittent luq pain, ct scan no major findings. Review of Systems Review of Systems: All systems reviewed & are unremarkable except as noted in HPI and below PMFSH Past Medical History Medical History (Updated 01/14/25 @ 12:17 by Demetris Patrick MD) Chronic LUQ pain Family history of colon cancer in father Breast asymmetry Perimenopause Screening mammogram, encounter for Abnormal Pap smear of cervix 2000 ascus Hypertension Arthritis Anemia High cholesterol Mild acid reflux Dizziness Asthma Anxiety and depression Surgical History Surgical History History of endometrial ablation (07/23/20) menometrorrhagia History of dilation and curettage (08/10/18) History of colposcopy with cervical biopsy (~2000) benign Delivery by section 12/25/03 primary c/s--breech @ 34 weeks H/O tubal ligation (08/10/18) Family History Family History Father Carcinoma of colon Mother Diabetes mellitus Arthritis Sibling Diabetes mellitus sister Grandparent Breast cancer paternal grandmother Tumor of ovary paternal grandmother Social History Social History Smoking packs per day: 0.5 Smoking cigarettes per day: 10.0 Years smoked: 4 Smoking pack-years: 2.00 Smoking status: Former smoker Tobacco type: cigarettes Second hand tobacco smoke exposure: No Alcohol intake: never Drinks per week: 1 Alcohol use details: per month Substance use: never Substance use type: does not use Last use: 04-23-2000 Living arrangements: with family Additional living arrangements comments: Occupation/Education: occupation 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 Gender identity (if verbalized by the patient): Female Sexual Orientation (if Verbalized by the Patient): Straight or Heterosexual Spiritual care concerns: No Meds Home Medications and Allergies Home Medications ?Medication ?Instructions ?Recorded ?Confirmed ?Type esomeprazole magnesium 20 mg 20 mg PO DAILY 07/08/20 01/14/25 History capsule,delayed release (Nexium 24HR) losartan 50 mg tablet 50 mg PO DAILY 07/08/20 01/14/25 History venlafaxine 75 mg tablet 32.5 mg PO DAILY 07/08/20 01/14/25 History atorvastatin 40 mg tablet 40 mg PO DAILY 04/10/24 01/14/25 History multivitamin 1 tablet PO DAILY 01/03/25 01/14/25 History vitamin B complex 1 cap PO DAILY 01/03/25 01/14/25 History Allergies Allergy/AdvReac Type Severity Reaction Status Date / Time No Known Allergies Allergy Verified 01/14/25 11:35 Vital Signs Vital Signs - 24 hr 01/14/25 11:38 Temperature 97 F L Pulse Rate 88 Respiratory Rate 18 Blood Pressure 133/86 Pulse Oximetry 100 Oxygen Delivery Room Air Exam Const: General: comfortable and no acute distress HENMT: Face/Nose/Sinus: Normal nares present Eyes: General: appearance normal, both eyes and all related structures Neck: Neck: no JVD Resp: Auscultation: clear to auscultation bilaterally Cardio: Rate: regular rate Rhythm: regular rhythm GI: Inspection: non-distended GI Palp: Yes Soft to palpation Skin: General skin exam: normal color Neuro: General: gait normal Speech: normal speech Extrem: General: normal to inspection Psych: Mental Status: mental status grossly normal Assessment and Plan Assessment and plan (1) Chronic LUQ pain: Code(s): R10.12 - Left upper quadrant pain; G89.29 - Other chronic pain Status: Acute Assessment and Plan: egd with bx
[2025-01-14 12:25] VITALS: BP 134/87; PULSE 85; RESP 18; O2SAT 98
[2025-01-14 12:35] VITALS: BP 128/80; PULSE 83; RESP 15; O2SAT 100
[2025-01-14 12:45] VITALS: BP 133/82; PULSE 77; RESP 20; O2SAT 100
== END 2025-01-14 12:56 | disposition home or self-care (01) ==
PROVIDERS: PCP Physician Assistant; Referring Provider Physician Assistant; Visit Provider Internal Medicine Gastroenterology
PROC: 0DJ08ZZ Inspection of Upper Intestinal Tract, Via Natural or Artificial Opening Endoscopic (ICD-10-PCS; CPT 43239; principal; 2025-01-14 12:45)
DX: K29.70 Gastritis, unspecified, without bleeding (principal); R10.12 Left upper quadrant pain; G89.29 Other chronic pain; Z87.891 Personal history of nicotine dependence
CPT/HCPCS: 43239; 88305; J2704; J7120